=== PATIENT | male | born 1970 | race Caucasian/White ===

== ENCOUNTER → 2017-10-10 02:51 | Outpatient (CLI) | payer OTHER, SELFPAY ==
[2017-10-10 07:55] LABS: Abs Immature Grans 0.02 k/cumm (0.0-0.09); Absolute Basophil Count 0.03 k/cumm (0.0-0.2); Absolute Eosinophil Count 0.18 k/cumm (0.0-0.7); Absolute Lymphocyte Count 2.67 k/cumm (1.2-3.4); Absolute Neutrophil Count 3.62 k/cumm (1.2-6.7); Basophils % 0.4; Eosinophils % 2.5; HCT 37.3 % (40.0-50.0); HGB 12.2 g/dL (13.5-17.5); Immature Grans % 0.3; Mean Corp. HGB Concentration 32.7 g/dL (32.0-36.0); Mean Corpuscular Hemoglobin 29.5 pg (27.0-33.0); Mean Corpuscular Volume 90.3 fL (80-95); Mean Platelet Volume 9.3 fL (8.0-11.0); Monocytes % 9.7; Neutrophils % 50.1; Platelet Count 422 x1000/uL (130-400); RBC 4.13 m/cumm (4.50-6.00); RBC Distribution Width 14.3 % (11.8-14.1); White Blood Cell Count 7.22 k/cumm (4.4-10.8)
[2017-10-10 08:49] LABS: ALT 33 U/L (12-78); AST 18 U/L (15-37); Albumin 4.1 g/dL (3.4-5.0); Alkaline Phosphatase 44 U/L (46-116); Anion Gap 8.4 mmol/L (3-11); BUN 13 mg/dL (7-18); Bilirubin, Total 0.4 mg/dL (0.2-1.0); CO2 27.6 mmol/L (21.0-32.0); CREATININE 0.76 mg/dL (0.70-1.30); Calcium 9.2 mg/dL (8.5-10.1); Chloride 103 mmol/L (98-107); Cholesterol 243 mg/dL (50-200); Glucose 82 mg/dL (70-100); HDL Cholesterol 78 mg/dL (40-60); LDL CHOLESTEROL 142 mg/dL (<100); Potassium 4.4 mmol/L (3.5-5.1); Sodium 139 mmol/L (136-145); Total Protein 7.5 g/dL (6.4-8.2); Triglyceride 86 mg/dL (30-150)
== END ==
PROVIDERS: PCP Family Medicine; Visit Provider Physician Assistant
DX: Z79.899 Other long term (current) drug therapy (principal)
CPT/HCPCS: 36415; 80053; 80061; 83721; 85025

== ENCOUNTER 2019-01-31 09:02 | Outpatient (CLI) | payer OTHER, SELFPAY ==
[2019-01-31 11:28] LABS: Calculated LDL 135 mg/dL; Cholesterol 213 mg/dL (<200); HDL Cholesterol 66 mg/dL (40-60); Triglyceride 61 mg/dL (<150)
== END 2019-01-31 09:22 ==
PROVIDERS: PCP Family Medicine; Visit Provider Family Medicine
DX: E78.2 Mixed hyperlipidemia (principal)
CPT/HCPCS: 36415; 80061

== ENCOUNTER 2023-04-04 12:25 | Outpatient (CLI) | payer OTHER, SELFPAY ==
[2023-04-04 11:26] LABS: HGB 14.5 g/dL (13.5-17.5); MCV 88 fL (80-95); MPV 9.4 fL (8.0-11.0); Platelet Count 343 10^3/uL (130-400); RDW 12.7 % (11.8-14.1); RDW-SD 41.2 fL; WBC 9.07 10^3/uL (4.4-10.8)
[2023-04-04 11:43] LABS: Hemoglobin A1C 5.5 % (<5.7)
[2023-04-04 12:21] LABS: ALT 43 U/L (16-63); AST 16 U/L (15-37); Albumin 4.1 g/dL (3.4-5.0); Alkaline Phosphatase 68 U/L (46-116); Anion Gap 10.3 mmol/L (3-11); BUN 11 mg/dL (7-18); Bilirubin, Total 0.5 mg/dL (0.2-1.0); CO2 27.7 mmol/L (21.0-32.0); CREATININE 0.7 mg/dL (0.70-1.30); Calcium 9.5 mg/dL (8.5-10.1); Calculated LDL 136 mg/dL (<100); Chloride 103 mmol/L (98-107); Cholesterol 222 mg/dL (<200); Estimated GFR 111.56 (mL/min/1.73m2); Ferritin 432 ng/mL (26-388); Glucose 104 mg/dL (74-106); HDL Cholesterol 69 mg/dL (40-60); Potassium 4.3 mmol/L (3.5-5.1); Sodium 141 mmol/L (136-145); Total Protein 8.1 g/dL (6.4-8.2); Triglyceride 89 mg/dL (<150)
== END 2023-04-04 12:26 | disposition home or self-care (01) ==
LOC: LBO 12:26
PROVIDERS: Surgery; PCP Family Medicine; Visit Provider Student in an Organized Health Care Education/Training Program
DX: I10 Essential (primary) hypertension (principal); B99.9 Unspecified infectious disease; R53.83 Other fatigue; N52.9 Male erectile dysfunction, unspecified; L63.9 Alopecia areata, unspecified; K46.9 Unspecified abdominal hernia without obstruction or gangrene; G47.20 Circadian rhythm sleep disorder, unspecified type
CPT/HCPCS: 36415; 80053; 80061; 85027; 82728; 83036

== ENCOUNTER 2023-05-03 04:14 | Emergency (ER) | payer OTHER, SELFPAY ==
--- NOTE | 2023-05-03 04:15 | DI.RAD_ITS ---
Exam(s) XR PORTABLE CHEST AP EXAM: XR PORTABLE CHEST AP CLINICAL HISTORY: chest pain. TECHNIQUE: 2D digital imaging was performed. COMPARISON: No exams were available for comparison FINDINGS: Single AP portable view. Heart size is upper normal. The mediastinum is not widened. Mild increased interstitial markings noted in both lung beach but no confluent infiltrates nor pleur al effusions. No pulmonary edema. There are no Pipo B lines. IMPRESSION: As above but no confluent infiltrates. DATA REPOSITORY: RADIATION DOSE DELIVERED:
--- NOTE | 2023-05-03 04:15 | RT.EKG_ITS ---
APPROVED REPORT Exam: Resting ECG Reason for Exam: chest pain Patient Location: E HR:91 bpm ECG Measurements Heart Rate 91 AXIS MD 156 P 44 QRSd 98 QRS -7 QT 355 T -20 QTc 437 Conclusion Sinus rhythm...normal P axis, V-rate 60- 99 Borderline repol abnormality, diffuse leads...ST dep, T flat/neg, ant/lat/inf Borderline ST elevation, anterior leads...ST >0.15mV in V1-V4 STEMI: V1-V2 ekevation with reciprocal changes in inferior leads
[2023-05-03 04:19] VITALS: BP 185/127; PULSE 93; RESP 18; TEMP 36.8; O2SAT 100
[2023-05-03 04:21] VITALS: BP 185/127; PULSE 92; RESP 21; O2SAT 100
[2023-05-03 04:30] VITALS: BP 175/108; PULSE 93; RESP 22; O2SAT 100
[2023-05-03] MEDS: nitroGLYcerin in D5W 50 MG/250 ML BTL IV (04:30)
--- NOTE | 2023-05-03 04:30 | RT.EKG_ITS ---
APPROVED REPORT Exam: Resting ECG Reason for Exam: chest pain Patient Location: E HR:88 bpm ECG Measurements Heart Rate 88 AXIS MT 150 P 35 QRSd 103 QRS 0 QT 363 T 15 QTc 440 Conclusion Sinus rhythm...normal P axis, V-rate 60- [address] elevation, normalization of repolarization in the inferior leads, pt pain free
[2023-05-03] MEDS: Aspirin 81 MG CHEW 324 MG CH (04:32)
[2023-05-03] MEDS: Clopidogrel 300 MG TAB (04:33)
[2023-05-03] MEDS: MORPHine 10 MG/ML VIAL 4 MG IVP (04:35)
[2023-05-03 04:37] LABS: Abs Immature Grans 0.05 10^3/uL (0.0-0.06); Absolute Basophil Count 0.07 10^3/uL (0.0-0.2); Absolute Eosinophil Count 0.38 10^3/uL (0.0-0.7); Absolute Lymphocyte Count 4.64 10^3/uL (1.2-3.4); Absolute Monocyte Count 1.14 10^3/uL (0.1-0.8); Basophils % 0.6; Eosinophils % 3.5; HCT 42.4 % (40.0-50.0); Immature Grans % 0.5; MCH 29.4 pg (27.0-33.0); MCV 89 fL (80-95); MPV 9.7 fL (8.0-11.0); Monocytes % 10.6; Neutrophils % 41.8; Platelet Count 370 10^3/uL (130-400); RBC 4.76 10^6/uL (4.36-5.78); RDW 12.7 % (11.8-14.1); WBC 10.78 10^3/uL (4.4-10.8)
[2023-05-03] MEDS: Ondansetron 4 MG/2 ML VIAL (04:45)
[2023-05-03 04:51] LABS: PTT Activated 23.4 sec (23.6-32.8); Prothrombin Time 9.9 sec (9.1-11.1)
[2023-05-03] MEDS: Heparin in 0.45% NaCl 25,000 UNIT/250 ML BAG 10 UNIT IV (04:56)
[2023-05-03 05:00] VITALS: BP 140/91; PULSE 93; RESP 17; O2SAT 100
[2023-05-03 05:00] LABS: ALT 39 U/L (16-63); AST 22 U/L (15-37); Albumin 3.8 g/dL (3.4-5.0); Alkaline Phosphatase 62 U/L (46-116); Anion Gap 13.5 mmol/L (3-11); BUN 12 mg/dL (7-18); Bilirubin, Total 0.4 mg/dL (0.2-1.0); CO2 22.5 mmol/L (21.0-32.0); CREATININE 0.9 mg/dL (0.70-1.30); Calcium 8.9 mg/dL (8.5-10.1); Chloride 103 mmol/L (98-107); Glucose 144 mg/dL (74-106); Magnesium 2.1 mg/dL (1.8-2.4); Potassium 3.4 mmol/L (3.5-5.1); Sodium 139 mmol/L (136-145); Total Protein 7.7 g/dL (6.4-8.2)
[2023-05-03 05:01] LABS: Troponin I < 50 ng/L (< or =60)
--- NOTE | 2023-05-03 05:02 | ED.GENADUL_ITS ---
Discharge Plan Disposition Patient Disposition: Transfer-Acute Inpatient Care Specific Acute Inpt Facility[facility] Condition: Serious Discharge Details Chief Complaint: Chest Pain Clinical Impression: Acute non-ST segment elevation myocardial infarction Primary Care Provider: Juan Euceda ED Provider: Jasmeet Smith Home Meds and New Rx's Prescriptions: No Action lisinopril 20 mg tablet 20 mg PO DAILY 90 Days Qty: 90 3RF Discharge Data Discharge Physician: Jasmeet Smith HPI General Date/Time Provider Initiated Documentation: 05/03/23 04:25 . HPI Narrative: The patient is a 52-year-old male, with a past medical history significant for hypertension, who presents to the emergency department this evening after developing sudden crushing substernal chest discomfort with diaphoresis and nausea while walking into work this morning at around 4 AM. The patient was having difficulty with weakness and the ongoing chest pain and ultimately drove himself to the emergency room. He denies any recent illnesses or any prodromal symptoms prior to the onset of his substernal chest pain. 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 Related Data Home Medications Medication Instructions Recorded Confirmed lisinopril 20 mg tablet 20 mg PO DAILY 90 days #90 tab-caps 03/21/23 05/03/23 Previous Rx's Medication Instructions Recorded lisinopril 20 mg tablet 20 mg PO DAILY 90 days #90 tab-caps 03/21/23 Allergies Allergy/AdvReac Type Severity Reaction Status Date / Time cat dander Allergy Severe head Verified 05/03/23 04:37 congestion, SOB, Watery Eyes. ibuprofen Allergy Intermediate Hives Verified 05/03/23 04:37 Dust Allergy Intermediate head Uncoded 05/03/23 04:37 congestion General Stated Complaint: Chest Pain MORGAN: 2 Exam Const Other: Ashen, mclaughlin, profoundly diaphoretic and ill-appearing Resp Other: Auscultated breath sounds are clear bilaterally with good air exchange. Cardio Other: The cardiac rhythm is regular and tachycardic without any murmurs, rubs, or gallops. GI Other: The abdomen is soft and nontender with auscultated bowel sounds. Skin Other: The patient is profoundly diaphoretic and ashen on arrival to the emergency room Neuro Other: There are no focal motor or sensory deficits. The visualized components of the cranial nerves are grossly intact Psych Other: The patient is anxious with normal behavior and normal thought content Course Vital Signs Vital signs: Vital Signs Temperature 36.8 C 05/03/23 04:19 Pulse 93 H 05/03/23 04:19 Respiratory Rate 18 05/03/23 04:19 Blood Pressure 185/127 H 05/03/23 04:19 Pulse Oximetry 100 05/03/23 04:19 Temperature 36.8 C 05/03/23 04:19 Temperature Source Temporal Artery Scan 05/03/23 04:19 Pulse 93 H 05/03/23 04:19 Respiratory Rate 18 05/03/23 04:19 Respiratory Effort Short of Breath 05/03/23 04:23 Blood Pressure 185/127 H 05/03/23 04:19 Blood Pressure Position Supine 05/03/23 04:19 Pulse Oximetry 100 05/03/23 04:19 Oxygen Delivery Method Room Air 05/03/23 04:19 Oxygen Flow Rate 0 05/03/23 04:19 Pain Level 8 05/03/23 04:19 Lab/Test Results Lab/Test Results: Laboratory Tests Range/Units 05/03/23 04:20 WBC (4.4-10.8) 10^3/uL 10.78 RBC (4.36-5.78) 10^6/uL 4.76 Hgb (13.5-17.5) g/dL 14.0 Hct (40.0-50.0) % 42.4 MCV (80-95) fL 89 MCH (27.0-33.0) pg 29.4 MCHC (32.0-36.0) % 33.0 RDW (11.8-14.1) % 12.7 Plt Count (130-400) 10^3/uL 370 MPV (8.0-11.0) fL 9.7 Immature Gran % 0.5 Neutrophils % 41.8 Lymphocytes % 43.0 Monocytes % 10.6 Eosinophils % 3.5 Basophils % 0.6 Nucleated RBC % (0.0-0.3) % 0.0 Absolute Neutrophils (1.2-6.7) 10^3/uL 4.50 Absolute Lymphocytes (1.2-3.4) 10^3/uL 4.64 H Absolute Monocytes (0.1-0.8) 10^3/uL 1.14 H Absolute Eosinophils (0.0-0.7) 10^3/uL 0.38 Absolute Basophils (0.0-0.2) 10^3/uL 0.07 PT (9.1-11.1) sec 9.9 INR (0.9-1.1) 1.0 APTT (23.6-32.8) sec 23.4 L Sodium (136-145) mmol/L 139 Potassium (3.5-5.1) mmol/L 3.4 L Chloride (98-107) mmol/L 103 Carbon Dioxide (21.0-32.0) mmol/L 22.5 Anion Gap (3-11) mmol/L 13.5 H BUN (7-18) mg/dL 12 Creatinine (0.70-1.30) mg/dL 0.9 Est GFR (CKD-EPI 2020) (mL/min/1.73m2) 103.40 Glucose (74-106) mg/dL 144 H Calcium (8.5-10.1) mg/dL 8.9 Magnesium (1.8-2.4) mg/dL 2.1 Total Bilirubin (0.2-1.0) mg/dL 0.4 AST (15-37) U/L 22 ALT (16-63) U/L 39 Alkaline Phosphatase (46-116) U/L 62 Troponin I (< or =60) ng/L < 50 Total Protein (6.4-8.2) g/dL 7.7 Albumin (3.4-5.0) g/dL 3.8 Medical Decision Making Medical Records Medical records narrative: The patient was seen and examined. His EKG was very concerning for a STEMI with ST elevation in the anterior precordial leads with reciprocal changes in the inferior leads. I discussed the case with the cardiology service at [facility] who reviewed the EKGs and agreed that this represented a STEMI. They recommended that in addition to the IV nitro drip that event started, that the patient should receive an IV heparin bolus and drip and receive thrombolytics prior to transfer to [facility] as a STEMI to the [employer]. The patient was also given 324 mg of chewable aspirin and 300 mg of clopidogrel orally. The accepting physician at [facility] is Dr. Agustín Hernandez. The patient has improved significantly here in the emergency room in terms of his pain and coloration. He reports that his pain is gone from a 10 out of 10 to 2 out of 10. Repeat EKG reveals significant improvement in the ST segment elevation and the hyperacuity of the T waves throughout the precordium. The reciprocal changes in the inferior leads have almost completely resolved. The patient's was notified by phone, and she is in route to the emergency department at this time. Quality:SDOH Health Related Social Needs: No Data to Display PFSH All Active Problems (Updated 05/03/23 @ 05:09 by Jasmeet Smith MD) Acute non-ST segment elevation myocardial infarction (Acute) Hyperlipidemia (Acute) Hernia (Chronic) POSSIBLE Dx Erectile dysfunction (Acute) Circadian rhythm disorder (Acute) Hypertension (Chronic) Alopecia areata (Chronic 07/03/17) [facility]- Dermatology Family History Mother No problems noted. Father , cancer No problems noted. 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 [employer] Pets and animals: Yes Pets and animals: dog(s) Sexually active: Yes Do you think of yourself as: straight/heterosexual Current gender identity: male What is your relationship status?: How often do you talk on the phone with friends or family?: three or more times per week How often do you get together with friends or relatives?: decline to answer Do you belong to any clubs or organized social groups?: no Panel score (0-1 are the most socially isolated patients): 2 What type of physical activity do you participate in: none and other Details: physically active daily Seatbelt use: sometimes Helmet use: No Drive intox or ride w/intox 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
[2023-05-03] MEDS: Tenecteplase 50 MG KIT 45 MG IVP (05:03)
[2023-05-03 05:30] VITALS: BP 171/105; PULSE 95; RESP 19; O2SAT 100
[2023-05-03 06:00] VITALS: BP 138/89; PULSE 91; RESP 20; O2SAT 100
--- NOTE | 2023-05-03 06:19 | NUR.NOTE ---
VS from [facility] monitor not crossing over to [employer]. Some VS were manually entered. Print out of VS sent to medical records. Attempted to call report to laborer [employer] X 4 with no answer. Called [facility] and gave report to Lisbet LOPEZ.
--- NOTE | 2023-05-03 06:55 | DI.VRAD_ITS ---
PROCEDURE INFORMATION: Exam: XR Chest Exam date and time: 05/03/2023 4:43 AM Age: 52 years old Clinical indication: Pain; Chest pressure; Additional info: Chest pain TECHNIQUE: Imaging protocol: Radiologic exam of the chest. Views: 1 view. COMPARISON: US AAA SCREENING 04/09/2023 7:57 AM FINDINGS: Lungs: There is diffuse increase in interstitial markings. Pleural spaces: Unremarkable. No pleural effusion. No pneumothorax. Heart/Mediastinum: Unremarkable. No cardiomegaly. Bones/joints: Unremarkable. IMPRESSION: Nonspecific diffuse increase in interstitial markings. No focal consolidation. Dictated and Authenticated by: Santiago Borges MD. Ordering:YULIYA Alamo MD
== END 2023-05-03 07:02 | disposition short-term general hospital (02) ==
PROVIDERS: Emergency Provider Emergency Medicine Emergency Medical Services; PCP Family Medicine
DX: I10 Essential (primary) hypertension; I21.4 Non-ST elevation (NSTEMI) myocardial infarction; Z79.899 Other long term (current) drug therapy; Z88.8 Allergy status to other drugs, medicaments and biological substances; Z91.09 Other allergy status, other than to drugs and biological substances; E78.5 Hyperlipidemia, unspecified
CPT/HCPCS: 80053; 93005; 96365; 96366; 96374; 96375; 96376; 99291; 71045; 83735; 84484; 85025; 85610; 85730; 93010; J1644; J2270; J2305; J2405; J3101

== ENCOUNTER 2023-05-09 11:16 | Outpatient (CLI) | payer OTHER, SELFPAY ==
--- NOTE | 2023-05-09 11:15 | RT.EKG_ITS ---
APPROVED REPORT Exam: Resting ECG Reason for Exam: mi Patient Location: O HR:91 bpm ECG Measurements Heart Rate 91 AXIS WA 143 P 34 QRSd 95 QRS -4 QT 334 T 52 QTc 411 Conclusion Sinus rhythm...normal P axis, V-rate 50- 99 Left ventricular hypertrophy...multiple voltage criteria Nonspecific T abnormalities, anterior leads...T <-0.10mV, V2-V4 Baseline wander in lead(s) V1,V2,V3,V5
== END 2023-05-09 11:17 | disposition home or self-care (01) ==
LOC: DI.CARD 11:17
PROVIDERS: PCP Family Medicine; Visit Provider Internal Medicine Cardiovascular Disease
DX: I21.4 Non-ST elevation (NSTEMI) myocardial infarction (principal)
CPT/HCPCS: 93010

== ENCOUNTER 2023-05-13 11:39 | Outpatient (RCR) | payer OTHER, SELFPAY | END 2023-05-19 23:59 | disposition home or self-care (01) | LOC: CR 11:39 | PROVIDERS: PCP Family Medicine; Visit Provider Internal Medicine Cardiovascular Disease | DX: I21.4 Non-ST elevation (NSTEMI) myocardial infarction (principal); Z95.5 Presence of coronary angioplasty implant and graft | CPT/HCPCS: S9472 ==

== ENCOUNTER 2023-06-12 13:31 | Outpatient (RCR) | payer OTHER, SELFPAY | END 2023-06-18 23:59 | disposition home or self-care (01) | LOC: CR 13:31 | PROVIDERS: PCP Family Medicine; Visit Provider Internal Medicine Cardiovascular Disease | DX: I21.4 Non-ST elevation (NSTEMI) myocardial infarction (principal); Z95.5 Presence of coronary angioplasty implant and graft; Z51.89 Encounter for other specified aftercare | CPT/HCPCS: S9472 ==

== ENCOUNTER 2024-05-09 16:52 | Emergency (ER) | payer OTHER, SELFPAY ==
[2024-05-09 17:06] VITALS: BP 109/71; PULSE 94; RESP 16; TEMP 36.9; O2SAT 98
--- NOTE | 2024-05-09 18:15 | W.ED.GENAD ---
Discharge Plan Disposition Patient Disposition: Home Condition: Stable Discharge Details Clinical Impression: Superficial thrombophlebitis of left leg Primary Care Provider: Juan Euceda ED Provider: Joe Figueroa Home Meds and New Rx's Prescriptions: Discontinued aspirin 81 mg tablet,chewable 81 mg PO DAILY clopidogrel 75 mg tablet 75 mg PO DAILY Qty: 90 3RF No Action nitroglycerin 0.4 mg tablet, sublingual 0.4 mg sublingual Q5M PRN (Reason: chest pain) Rx Instructions: do not exceed 3 doses per episode lisinopril 20 mg tablet 20 mg PO DAILY 90 Days Qty: 90 3RF metoprolol succinate 50 mg tablet extended release 24 hr 50 mg PO DAILY Qty: 90 3RF atorvastatin 80 mg tablet 80 mg PO DAILY Qty: 90 3RF Discharge Instructions Instructions: Deep vein thrombosis (blood clot in the leg), Enoxaparin, Superficial vein phlebitis and thrombosis, How to Give a Blood Thinner Shot Additional Instructions: You were seen in the emergency department for your obvious large varicosities of your left lower extremity with extensive nodular swelling is consistent with superficial thrombophlebitis, we did not have ultrasound until Saturday and you are returning to the ER for a formal ultrasound of the left lower extremity on Saturday. He had an elevated D-dimer test so we are covering you to prevent any deep vein thrombosis over the weekend with a shot of Lovenox, 1 was given to you this evening, the next shot needs to be given around 7:30 PM tomorrow with return on Saturday for formal ultrasound by calling the number provided on your outpatient ultrasound order sheet and then presenting to the ER immediately after study for results. Be wary of any potential causes for trauma as V of the high risk of bleeding including any strikes to the head, significantly apply direct pressure and elevation to any even minor cut while on this medication. Please return for any emergent concerns. Referrals: Juan Euceda DO [Primary Care Provider] - Discharge Data Discharge Date/Time-TO BE ENTERED AT DEPARTURE: 05/09/24 19:55 HPI General Date/Time Provider Initiated Documentation: 05/09/24 17:17. HPI Narrative: 53 year-old male presents to ED today by POV/ambulating with his with a chief complaint of L leg pain, severe varicosities, with onset noticed last night around midnight. Quality described as L leg extremely painful, mildly swollen, some redness/warmth/skin changes in the upper lateral calf, no radiation to lesions, rider erythema, calf pain, medial thigh pain, groin pain. Severity is described as severe. Palliating factors include nothing specific attempted. Provoking factors include nothing specific. Events leading up to the incident/Associated Symptoms: Patient denies history of blood clots. Patient not anticoagulated- is on DAPT. Related Data Home Medications ?Medication ?Instructions ?Recorded ?Confirmed nitroglycerin 0.4 mg sublingual 0.4 mg sublingual Q5M PRN chest 05/08/23 05/09/24 tablet pain lisinopril 20 mg tablet 20 mg PO DAILY 90 days #90 tab-caps 04/13/24 05/09/24 metoprolol succinate 50 mg 50 mg PO DAILY #90 tabs 04/14/24 05/09/24 tablet,extended release 24 hr atorvastatin 80 mg tablet 80 mg PO DAILY #90 tabs 04/27/24 05/09/24 Previous Rx's ?Medication ?Instructions ?Recorded lisinopril 20 mg tablet 20 mg PO DAILY 90 days #90 tab-caps 04/13/24 metoprolol succinate 50 mg 50 mg PO DAILY #90 tabs 04/14/24 tablet,extended release 24 hr atorvastatin 80 mg tablet 80 mg PO DAILY #90 tabs 04/27/24 Allergies Allergy/AdvReac Type Severity Reaction Status Date / Time cat dander Allergy Severe head Verified 05/09/24 17:11 congestion, SOB, Watery Eyes. ibuprofen Allergy Intermediate Hives Verified 05/09/24 17:11 Dust Allergy Intermediate head Uncoded 05/09/24 17:11 congestion General Stated Complaint: Vascular MORGAN: 3 Review of Systems All systems reviewed & are unremarkable except as noted in HPI and below Exam Narrative Exam Narrative: GENERAL APPEARANCE: Well-nourished, non-toxic, awake and alert, atraumatic, no acute distress. SKIN: Warm, pink, dry, intact, without rashes/lesions/ulcerations. HEAD: Normocephalic, atraumatic, normal hair distribution for gender/age. EYES: Normal conjunctiva, no exudates on lids/lashes. ENT: Nares patent, no circumoral cyanosis, no facial swelling NECK: Supple, trachea midline, painless cervical ROM. LUNGS/CHEST: Non-labored respirations, normal A/P diameter, symmetrical expansion, no chest wall deformity HEART (CV/PV): No peripheral edema, no JVD, L dorsalis pedis pulse 2+, regular ABDOMEN: Soft, non-distended, no guarding. MSK: Normal ROM, no swelling/deformity to bilateral UEs or LEs, moving all extremities without weakness, no cyanosis, spine midline without tenderness, normal curvature, significant left lower extremity varicosity in the peroneal vein distribution with focal small nodular swelling throughout this large varicosity that goes from his mid thigh to upper lateral calf, he is neurovascularly intact distally without calf tenderness, Homans negative, no medial thigh tenderness, there is some warmth and erythema in the lateral proximal calf, right lower extremity within normal limits NEURO: Mental Status AAOx4 - alert to person, place, time, events No facial droop, no forehead involvement. Motor: No focal weakness - strength 5/5 in bilateral UEs and LEs, proximal and distal, symmetric. Sensory: sensation intact to light touch globally. Gait normal: patient ambulated without ataxia into ED room. PSYCH: euthymic, cooperative, pleasant, appropriate speech Course Vital Signs Vital signs: Vital Signs Temperature 36.9 C 05/09/24 17:06 Pulse 94 H 05/09/24 17:06 Respiratory Rate 16 05/09/24 17:06 Blood Pressure 109/71 05/09/24 17:06 Pulse Oximetry 98 05/09/24 17:06 Temperature 36.9 C 05/09/24 17:06 Pulse 94 H 05/09/24 17:06 Respiratory Rate 16 05/09/24 17:06 Blood Pressure 109/71 05/09/24 17:06 Pulse Oximetry 98 05/09/24 17:06 Oxygen Delivery Method Room Air 05/09/24 17:06 Oxygen Flow Rate 0 05/09/24 17:06 Medical Decision Making This dictation utilizes [id number] dictation software and may contain unedited grammatical errors. 53 year-old male presents to ED today by POV/ambulating with his with a chief complaint of L leg pain, severe varicosities, with onset noticed last night around midnight. Quality described as L leg extremely painful, mildly swollen, some redness/warmth/skin changes in the upper lateral calf, no radiation to lesions, rider erythema, calf pain, medial thigh pain, groin pain. Severity is described as severe. Palliating factors include nothing specific attempted. Provoking factors include nothing specific. Events leading up to the incident/Associated Symptoms: Patient denies history of blood clots. Patient not anticoagulated- is on DAPT. Patients' medical history: Coronary artery disease, hypertension, hyperlipidemia. Family and social history: Noncontributory, lives independently with his . Pertinent exam findings / vital signs include significant left lower extremity varicosity in the peroneal vein distribution with focal small nodular swelling throughout this large varicosity that goes from his mid thigh to upper lateral calf, he is neurovascularly intact distally without calf tenderness, Homans negative, no medial thigh tenderness, there is some warmth and erythema in the lateral proximal calf, right lower extremity within normal limits. Differential / pathologies of concern include superficial thrombophlebitis, DVT, less likely cellulitis. Diagnostic studies of: -[id number]. -basic labs prior to admin of lovenox, no acute abnormalities, mildly anemic, consistent with priors. Interventions of: -Given 1 dose of Lovenox, counseled his on administration of another dose of Lovenox tomorrow evening and then return to ED Saturday morning for ultrasound with immediate presentation to emergency department for results after outpatient formal ultrasound. ED Course/Assessment/Plan: 53-year-old male presents today with varicosities and some skin changes to his lower extremity concerning for DVT versus extensive superficial thrombophlebitis, his D-dimer was positive, I counseled him that we need to discontinue his Plavix and aspirin given Lovenox for the weekend so he can return on Saturday for formal ultrasound. Patient's is comfortable administering Lovenox at home and nurse did instruct her on how to give subcutaneous injection, stress strict return criteria for any head strikes or trauma, any uncontrollable bleeding or neurologic alteration. Findings not consistent with overt DVT but his superficial thrombophlebitis is extensive enough I think anticoagulation is warranted, not consistent with cellulitis. Disposition of superficial thrombophlebitis of left leg. Patient verbalized understanding of the plan and return to ED criteria and engaged in shared decision making. Medical Records Medical records reviewed: Yes I reviewed the patient's medical records. Lab Data Lab results reviewed: Yes I reviewed the patient's lab results. Labs: Laboratory Tests Range/Units 05/09/24 05/09/24 18:13 19:43 WBC (4.4-10.8) 10^3/uL 11.98 H RBC (4.36-5.78) 10^6/uL 4.13 L Hgb (13.5-17.5) g/dL 12.2 L Hct (40.0-50.0) % 37.4 L MCV (80-95) fL 91 MCH (27.0-33.0) pg 29.5 MCHC (32.0-36.0) % 32.6 RDW (11.8-14.1) % 13.7 Plt Count (130-400) 10^3/uL 339 MPV (8.0-11.0) fL 10.0 PT (9.1-11.1) sec 9.5 INR (0.9-1.1) 0.9 APTT (20.6-30.2) sec 28.5 D-Dimer (<500) ng/mlFEU 525 H Sodium (136-145) mmol/L 141 Potassium (3.5-5.1) mmol/L 3.5 Chloride (98-107) mmol/L 103 Carbon Dioxide (21.0-32.0) mmol/L 27.7 Anion Gap (3-11) mmol/L 10.3 BUN (7-18) mg/dL 12 Creatinine (0.70-1.30) mg/dL 0.6 L Est GFR (CKD-EPI 2020) (mL/min/1.73m2) 116.15 Glucose (74-106) mg/dL 88 Calcium (8.5-10.1) mg/dL 9.1 Quality:SDOH Health Related Social Needs: No Data to Display PFSH All Active Problems (Updated 05/09/24 @ 19:42 by PATRICIA Choi) Superficial thrombophlebitis of left leg (Acute) Coronary artery disease (Chronic) Hyperlipidemia (Acute) Hernia (Chronic) POSSIBLE Dx Erectile dysfunction (Acute) Circadian rhythm disorder (Acute) Hypertension (Chronic) Alopecia areata (Chronic 07/03/17) [facility]- [facility] Family History Mother No problems noted. Father , cancer No problems noted. 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 [employer] Pets and animals: Yes Pets and animals: dog(s) Sexually active: Yes Do you think of yourself as: straight/heterosexual Current gender identity: male What is your relationship status?: How often do you talk on the phone with friends or family?: three or more times per week How often do you get together with friends or relatives?: decline to answer Do you belong to any clubs or organized social groups?: no Panel score (0-1 are the most socially isolated patients): 2 What type of physical activity do you participate in: none and other Details: physically active daily Seatbelt use: sometimes Helmet use: No Drive intox or ride w/intox seasonal delivery 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
[2024-05-09 18:47] LABS: D-Dimer 525 ng/mlFEU (<500)
[2024-05-09 18:58] VITALS: RESP 16
[2024-05-09 19:23] LABS: HCT 37.4 % (40.0-50.0); HGB 12.2 g/dL (13.5-17.5); MCH 29.5 pg (27.0-33.0); MCHC 32.6 % (32.0-36.0); MCV 91 fL (80-95); Platelet Count 339 10^3/uL (130-400); RBC 4.13 10^6/uL (4.36-5.78); RDW 13.7 % (11.8-14.1); RDW-SD 45.8 fL; WBC 11.98 10^3/uL (4.4-10.8)
[2024-05-09] MEDS: Enoxaparin 120 MG/0.8 ML SYR SC ×2 (19:25→19:42)
[2024-05-09 19:30] LABS: Anion Gap 10.3 mmol/L (3-11); BUN 12 mg/dL (7-18); CO2 27.7 mmol/L (21.0-32.0); CREATININE 0.6 mg/dL (0.70-1.30); Calcium 9.1 mg/dL (8.5-10.1); Chloride 103 mmol/L (98-107); Estimated GFR 116.15 (mL/min/1.73m2); Glucose 88 mg/dL (74-106); Potassium 3.5 mmol/L (3.5-5.1); Sodium 141 mmol/L (136-145)
[2024-05-09] MEDS: Acetaminophen 500 MG TAB 1000 MG PO (19:41)
[2024-05-09 20:02] LABS: INR 0.9 (0.9-1.1); PTT Activated 28.5 sec (20.6-30.2); Prothrombin Time 9.5 sec (9.1-11.1)
== END 2024-05-09 19:55 | disposition home or self-care (01) ==
PROVIDERS: Emergency Provider Physician Assistant; PCP Family Medicine
DX: I83.892 Varicose veins of left lower extremity with other complications (principal); R79.1 Abnormal coagulation profile; I25.10 Atherosclerotic heart disease of native coronary artery without angina pectoris; I10 Essential (primary) hypertension; E78.5 Hyperlipidemia, unspecified; Z87.891 Personal history of nicotine dependence; Z79.02 Long term (current) use of antithrombotics/antiplatelets
CPT/HCPCS: 80048; 85027; 96372; 99284; 85379; 85610; 85730; 99283; J1650

== ENCOUNTER 2024-05-11 13:24 | Emergency (ER) | payer OTHER, SELFPAY ==
[2024-05-11 13:32] VITALS: BP 151/88; PULSE 88; RESP 20; TEMP 36.5; O2SAT 98
[2024-05-11 13:41] VITALS: RESP 18
--- NOTE | 2024-05-11 13:51 | ED.GENADUL_ITS ---
Discharge Plan Disposition Patient Disposition: Home Condition: Stable Discharge Details Clinical Impression: Superficial thrombophlebitis of left leg Primary Care Provider: Juan Euceda ED Provider: Angela Johnson Home Meds and New Rx's Prescriptions: New enoxaparin [Lovenox] 40 mg/0.4 mL syringe 40 mg subcut DAILY 45 Days Qty: 18 0RF No Action nitroglycerin 0.4 mg tablet, sublingual 0.4 mg sublingual Q5M PRN (Reason: chest pain) Rx Instructions: do not exceed 3 doses per episode lisinopril 20 mg tablet 20 mg PO DAILY 90 Days Qty: 90 3RF metoprolol succinate 50 mg tablet extended release 24 hr 50 mg PO DAILY Qty: 90 3RF atorvastatin 80 mg tablet 80 mg PO DAILY Qty: 90 3RF clopidogrel 75 mg tablet 75 mg PO DAILY Patient Comments: TAKE 1 TABLET BY MOUTH DAILY Discharge Instructions Instructions: How to give an anticoagulant shot Additional Instructions: You were seen in the emergency department today to discuss the results of the ultrasound that you had done on your left lower extremity. This did not show any deep vein thromboses, but you do have some small blood clots in the superficial veins, which are likely the cause of your symptoms. Based on your risk factors and the presence of clot it is reasonable to start you on a prophylactic anticoagulant medication. We will give yourself the shot daily, please hold your home Plavix and aspirin until you meet with your loan counselor at your scheduled appointment on . When you are on anticoagulant medications, it is important that you use caution as any injury to your head could be severe. If you are involved in a traumatic event you need to return to the emergency department for reevaluation, even for things like simple falls. You need to follow-up with your primary care provider to discuss this visit, and ensure that you are blood clot has improved/resolved and that it is safe for you to stop the anticoagulation after the recommended 45 days. You can also return to the emergency department if you have any concerns. Thank you for allowing us to be part of your care. HPI General Mode of arrival: ambulatory . Date/Time Provider Initiated Documentation: 05/11/24 13:27 . Limitations to Documentation: no limitations . Information obtained by: patient and old records reviewed . HPI Narrative: HPI: This is a 53-year-old male patient presenting for evaluation after having an outpatient duplex ultrasound performed, looking for results. In brief, the patient was seen in this emergency department 2 days ago with left calf pain and torturous varicose veins, concerning for superficial thrombophlebitis. The patient was started on anticoagulation with Lovenox, and was sent for ultrasound today to rule out DVT given a positive D-dimer. The patient reports that he has been taking his medication without difficulty, has not noted any significant changes in his pain or symptoms. He states that he does not typically utilize pain medications and has not used any ibuprofen or Tylenol. He is otherwise in his normal state of health without acute complaint or concern today. Exam: Gen: Awake and alert, in no apparent distress HEENT: Non-icteric sclera Neck: Supple Lungs: No apparent respiratory distress, normal respiratory effort. CV: Appears well perfused Abdomen: Non-distended MSK: Moves 4 extremities without apparent limitation in ROM, patient has torturous lateral varicose veins of the left lower extremity and calf with some nodularity appreciated at the lateral aspect of the knee and calf. The patient states tenderness to palpation but has no evidence of overlying skin changes such as cellulitis. Full range of motion of the leg, full sensation, appears well-perfused. Skin: Visualized skin without rashes, cyanosis. Neuro: Normal Gait, no obvious focal deficits or facial asymmetry. Speaks in full, clear sentences. Psych: Appropriate for situation. MDM: This is a 53-year-old male patient who is here for imaging results after a duplex ultrasound was performed to evaluate for DVT. Differential also includes superficial thrombophlebitis, no evidence for infection such as cellulitis or infectious thrombophlebitis. No significant swelling, neurodeficit, or evidence of perfusion abnormality to suggest arterial occlusion, phlegmasia. ED Course: I reviewed the radiology report, which shows no evidence of DVT but does show nonocclusive thrombus in the greater saphenous vein. Given the patient's history of coronary artery disease, hyperlipidemia, and hypertension with does put him at slightly increased risk for VTE, recommendations per my review recommends prophylactic anticoagulation in this patient with greater saphenous vein involvement, to include Lovenox 30 mg daily. I provided prescription for a 45-day course of this medication. I counseled the patient to hold his dual antiplatelet therapy until his appointment with his loan counselor on Thursday at which time he should discuss this visit and any ongoing recommendations for anticoagulant management. He also has a scheduled appointment with his primary care provider who should be made aware of this change in medications. I counseled the patient on anticoagulant precautions, and at this time, the patient has had a full medical evaluation and is safe for discharge to home. They are hemodynamically stable, ambulatory, and tolerating PO. They are understanding of the follow-up plan and return precautions. They left our facility without incident. Angela Johnson MD Related Data Home Medications ?Medication ?Instructions ?Recorded ?Confirmed nitroglycerin 0.4 mg sublingual 0.4 mg sublingual Q5M PRN chest 05/08/23 05/11/24 tablet pain lisinopril 20 mg tablet 20 mg PO DAILY 90 days #90 tab-caps 04/13/24 05/11/24 metoprolol succinate 50 mg 50 mg PO DAILY #90 tabs 04/14/24 05/11/24 tablet,extended release 24 hr atorvastatin 80 mg tablet 80 mg PO DAILY #90 tabs 04/27/24 05/11/24 clopidogrel 75 mg tablet 75 mg PO DAILY 05/11/24 05/11/24 enoxaparin 40 mg/0.4 mL 40 mg (0.4 mL) subcut DAILY 45 05/11/24 subcutaneous syringe (Lovenox) days #18 mL Previous Rx's ?Medication ?Instructions ?Recorded lisinopril 20 mg tablet 20 mg PO DAILY 90 days #90 tab-caps 04/13/24 metoprolol succinate 50 mg 50 mg PO DAILY #90 tabs 04/14/24 tablet,extended release 24 hr atorvastatin 80 mg tablet 80 mg PO DAILY #90 tabs 04/27/24 enoxaparin 40 mg/0.4 mL 40 mg (0.4 mL) subcut DAILY 45 05/11/24 subcutaneous syringe (Lovenox) days #18 mL Allergies Allergy/AdvReac Type Severity Reaction Status Date / Time cat dander Allergy Severe head Verified 05/11/24 13:35 congestion, SOB, Watery Eyes. ibuprofen Allergy Intermediate Hives Verified 05/11/24 13:35 Dust Allergy Intermediate head Uncoded 05/11/24 13:35 congestion General Stated Complaint: Vascular MORGAN: 4 Course Vital Signs Vital signs: Vital Signs Temperature 36.5 C 05/11/24 13:32 Pulse 88 05/11/24 13:32 Respiratory Rate 20 05/11/24 13:32 Blood Pressure 151/88 H 05/11/24 13:32 Pulse Oximetry 98 05/11/24 13:32 Temperature 36.5 C 05/11/24 13:32 Pulse 88 05/11/24 13:32 Respiratory Rate 18 05/11/24 13:41 Respiratory Depth Normal 05/11/24 13:41 Respiratory Pattern Normal 05/11/24 13:41 Blood Pressure 151/88 H 05/11/24 13:32 Blood Pressure Position Sitting 05/11/24 13:32 Pulse Oximetry 98 05/11/24 13:32 Oxygen Delivery Method Room Air 05/11/24 13:32 Oxygen Flow Rate 0 05/11/24 13:32 Medical Decision Making Quality:SDOH Health Related Social Needs: No Data to Display PFSH All Active Problems (Updated 05/11/24 @ 13:51 by Angela Johnson MD) Superficial thrombophlebitis of left leg (Acute) Coronary artery disease (Chronic) Hyperlipidemia (Acute) Hernia (Chronic) POSSIBLE Dx Erectile dysfunction (Acute) Circadian rhythm disorder (Acute) Hypertension (Chronic) Alopecia areata (Chronic 07/03/17) [facility] Family History Mother No problems noted. Father , cancer No problems noted. 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 [employer] Pets and animals: Yes Pets and animals: dog(s) Sexually active: Yes Do you think of yourself as: straight/heterosexual Current gender identity: male What is your relationship status?: How often do you talk on the phone with friends or family?: three or more times per week How often do you get together with friends or relatives?: decline to answer Do you belong to any clubs or organized social groups?: no Panel score (0-1 are the most socially isolated patients): 2 What type of physical activity do you participate in: none and other Details: physically active daily Seatbelt use: sometimes Helmet use: No Drive intox or ride w/intox funeral limousine 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
[2024-05-11 14:34] VITALS: BP 118/85; PULSE 80; RESP 18; O2SAT 98
== END 2024-05-11 14:39 | disposition home or self-care (01) ==
PROVIDERS: Emergency Provider Emergency Medicine; PCP Family Medicine
DX: I82.4Z2 Acute embolism and thrombosis of unspecified deep veins of left distal lower extremity (principal); I10 Essential (primary) hypertension; E78.5 Hyperlipidemia, unspecified; I25.10 Atherosclerotic heart disease of native coronary artery without angina pectoris; Z87.891 Personal history of nicotine dependence
CPT/HCPCS: 99283

== ENCOUNTER 2024-09-01 09:59 | Observation (INO) | payer OTHER, SELFPAY ==
[2024-09-01] VITALS (53 sets, daily range): BP systolic 102–181; BP diastolic 52–102; PULSE 63–108; RESP 12–29; TEMP 36–37.3; O2SAT 93–100; BMI 28.2
--- NOTE | 2024-09-01 10:15 | DI.CT_ITS ---
Exam(s) CT ABDOMEN PELVIS W EXAM: CT ABDOMEN PELVIS W CLINICAL HISTORY: Concern for incarcerated umbilical hernia TECHNIQUE: Imaging Protocol: Axial computed tomography images with coronal and sagittal reformatted images were created and reviewed. CONTRAST MATERIAL: Intravenous: Omnipaque 350 Contrast volume:75 mL Oral: No COMPARISON: No exams were available for comparison FINDINGS: The examination is limited due to patient motion artifact. ABDOMEN: Lung Bases: No acute abnormality. Liver: Normal density. No measurable mass. Portal, Superior Mesenteric, and Splenic Veins: Unremarkable. Gallbladder and Biliary Tract: No radiodense calculus or dilation. Pancreas: Normal density, no abnormal calcifications or inflammatory process. Spleen: There is a tiny hypodensity in the inferior aspect of the spleen which may represent a cyst or small hemangioma. Adrenals: No masses seen. Kidneys: Normal size, contour and axis. No radiodense stones or obstructive uropathy. No masses seen. Abdominal Aorta: Abdominal portion non-dilated. Atherosclerotic calcification is present. Bowel: There is diverticulosis of the colon without evidence of acute diverticulitis. There is a Umbilical hernia containing a loop of small bowel. The loop of small bowel within the hernia is distended measuring 3 cm in diameter. There are distended loops of small bowel present. The findings are suspicious for small bowel obstruction. There is normal caliber terminal ileum. The colon is of normal caliber. Appendix is unremarkable. There is no evidence of pneumatosis. Peritoneal Cavity: No ascites, collection or mesenteric inflammatory response. No free air. Lymph Nodes: Within normal limits. Bones: Within normal limits for the patient's age. Soft Tissues: There are bilateral fat containing inguinal hernias. PELVIS: Bladder: Symmetric distention, no gross wall thickening. Reproductive Organs: Unremarkable as visualized. Lymph Nodes: Within normal limits. Bones: Within normal limits for the patient's age. IMPRESSION: 1. Paraumbilical hernia containing a loop of distended small bowel. There are distended loops of small bowel in the abdomen most consistent with a small-bowel obstruction secondary to the hernia. 2. No evidence of pneumoperitoneum or pneumatosis. RADIATION DOSE DELIVERED: 476.26mGy.cm Total DLP DATA REPOSITORY: All CT scans at this facility are submitted to the National Radiology Data Registry (NRDR) Dose Index Registry (DIR) with the [employer] (ACR). RADIATION OPTIMIZATION: All CT scans at this facility use at least one of these dose optimization techniques: automated exposure control; mA and/or kV adjustment per patient size (includes targeted exams where dose is matched to clinical indication); or iterative reconstruction.
--- NOTE | 2024-09-01 10:15 | RT.EKG_ITS ---
APPROVED REPORT Exam: Resting ECG Reason for Exam: pale, diaphoretic Patient Location: E HR:84 bpm ECG Measurements Heart Rate 84 AXIS AR 145 P 46 QRSd 97 QRS 0 QT 370 T 23 QTc 436 Conclusion Sinus rhythm, rate 84 No interval abnormalities No STEMI No significant changes from priors
[2024-09-01] MEDS: Ondansetron 4 MG/2 ML VIAL IVP (10:28)
[2024-09-01] MEDS: HYDROmorphone 2 MG/ML SYR 0.5 MG IVP (10:28)
--- NOTE | 2024-09-01 10:32 | W.ED.GENAD ---
Discharge Plan Disposition Patient Disposition: Admit to [facility] Condition: Fair Discharge Details Clinical Impression: Incarcerated umbilical hernia Attending Provider: Zeeshan Marroquin Primary Care Provider: Juan Euceda ED Provider: Angela Johnson General Mode of arrival: ambulatory. Date/Time Provider Initiated Documentation: 09/01/24 10:01. Limitations to Documentation: no limitations. Information obtained by: patient and old records reviewed. HPI Narrative: This is a 54-year-old male patient with a past medical history significant for coronary artery disease, [place] 1 year ago, and a history of an umbilical hernia that has been present for some time, presenting for evaluation of worsening pain in the area of his umbilical hernia. About 30 minutes ago the patient reports that he was lifting a heavy box, felt a sudden severe tearing pain and has had persistent pain in his umbilical region since then. He states that he felt like he needed to vomit, states that he has tried to go to the bathroom since but has not been able to pass stool. Prior to this event he was in his normal state of health. He has not taken any medications prior to arrival in our facility for management of pain or nausea. Related Data Home Medications ?Medication ?Instructions ?Recorded ?Confirmed lisinopril 20 mg tablet 20 mg PO DAILY 90 days #90 tab-caps 04/13/24 09/01/24 metoprolol succinate 50 mg 50 mg PO DAILY #90 tabs 04/14/24 09/01/24 tablet,extended release 24 hr atorvastatin 80 mg tablet 80 mg PO DAILY #90 tabs 04/27/24 09/01/24 aspirin 81 mg tablet,delayed 81 mg PO DAILY 05/14/24 09/01/24 release (Adult Aspirin Regimen) nitroglycerin 0.4 mg sublingual 0.4 mg sublingual Q5M PRN chest 06/09/24 09/01/24 tablet pain #20 tabs Previous Rx's ?Medication ?Instructions ?Recorded lisinopril 20 mg tablet 20 mg PO DAILY 90 days #90 tab-caps 04/13/24 metoprolol succinate 50 mg 50 mg PO DAILY #90 tabs 04/14/24 tablet,extended release 24 hr atorvastatin 80 mg tablet 80 mg PO DAILY #90 tabs 04/27/24 nitroglycerin 0.4 mg sublingual 0.4 mg sublingual Q5M PRN chest 06/09/24 tablet pain #20 tabs Allergies Allergy/AdvReac Type Severity Reaction Status Date / Time cat dander Allergy Severe head Verified 09/01/24 10:09 congestion, SOB, Watery Eyes. ibuprofen Allergy Intermediate Hives Verified 09/01/24 10:09 Dust Allergy Intermediate head Uncoded 09/01/24 10:09 congestion General Stated Complaint: Abd Prob MORGAN: 2 Exam Narrative Exam Narrative: Gen: Awake and alert, appears acutely uncomfortable HEENT: Non-icteric sclera Neck: Supple Lungs: No apparent respiratory distress, normal respiratory effort. CV: Appears well perfused, heart with tachycardic rate but regular rhythm, strong distal pulses Abdomen: Non-distended, soft, the patient has a palpable umbilical hernia that is unable to be reduced, with some dusky discoloration of the skin immediately overlying. Tenderness to palpation in this region. MSK: Moves 4 extremities without apparent limitation in ROM Skin: Visualized skin without rashes, cyanosis. Skin is pale, clammy Neuro: Normal Gait, no obvious focal deficits or facial asymmetry. Speaks in full, clear sentences. Psych: Appropriate for situation. Course Vital Signs Vital signs: Vital Signs Temperature 37.3 C 09/01/24 10:07 Pulse 108 H 09/01/24 10:07 Respiratory Rate 20 09/01/24 10:07 Blood Pressure 140/73 09/01/24 10:07 Pulse Oximetry 98 09/01/24 10:07 Temperature 37.3 C 09/01/24 10:07 Temperature Source Oral 09/01/24 10:07 Pulse 108 H 09/01/24 10:07 Respiratory Rate 20 09/01/24 10:07 Blood Pressure 140/73 09/01/24 10:07 Blood Pressure Position Sitting 09/01/24 10:07 Pulse Oximetry 98 09/01/24 10:07 Oxygen Delivery Method Room Air 09/01/24 10:07 Oxygen Flow Rate 0 09/01/24 10:07 Pain Level 10 09/01/24 10:28 Medical Decision Making This is a 54-year-old male patient presenting for evaluation of abdominal pain in the area of an umbilical hernia after lifting. My differential includes but is not limited to strangulated or incarcerated hernia, bowel ischemia, certainly considered other intra-abdominal pathologies including bowel obstruction, appendicitis, diverticulitis, mesenteric ischemia, pancreatitis, gastritis, cholecystitis. The brief duration of symptoms is reassuring, though I considered metabolic and electrolyte derangements, dehydration and kidney injury. Considered systemic infection including bacteremia and sepsis, though the patient is reassuringly without fever at this time. Given the concerning exam I we will send this patient immediately to CT abdomen pelvis with contrast to evaluate the cause of his pain. We will obtain laboratory studies to include CBC, CMP, magnesium, troponin, lactate, lipase, and urinalysis. I will provide the patient with Zofran and Dilaudid for initial management of pain and nausea. - I reviewed the patient's laboratory studies, which show no leukocytosis, severe anemia or thrombocytopenia. Chemistry panel shows no significant electrolyte derangements, evidence of kidney dysfunction or liver pathology. I do note a slightly elevated lactate to 2.4, INR 1.0. CT imaging does show a loop of bowel in the known umbilical hernia, with evidence of dilation/small bowel obstruction upstream. This is concerning for incarcerated hernia. I did consult general surgery, who attempted reduction at bedside and were unsuccessful. The patient will be taken to the operating suite for surgical intervention. While under my care the patient remained hemodynamically appropriate, did receive a second dose of Dilaudid for ongoing pain management needs. He was transferred to the OR under the care of the surgery service without incident Angela Johnson MD [facility] All Active Problems (Updated 09/01/24 @ 14:07 by Angela Johnson MD) Incarcerated umbilical hernia (Acute) Incarcerated umbilical hernia (Acute) Varicose veins of left calf (Acute) Phlebitis (Acute) Superficial thrombophlebitis of left leg (Acute) Coronary artery disease (Chronic) Hyperlipidemia (Acute) Hernia (Chronic) POSSIBLE Dx Erectile dysfunction (Acute) Circadian rhythm disorder (Acute) Hypertension (Chronic) Alopecia areata (Chronic 07/03/17) [facility] Family History Mother No problems noted. Father , cancer No problems noted. Social History Smoking/Tobacco Use Status: Former Tobacco Use Smokeless tobacco user: chewing tobacco (Occasional use; has quit) Smoking risk assessment performed?: Yes Alcohol Intake: current Alcohol Intake frequency: 0-2 drinks per day Alcohol type: beer Drug use: Never Substance use type: does not use Adopted: No Caregiver/Support person: No Household members: spouse Housing: house Number of Children: 2 Communication Needs: None Education Level: high school current occupation: part time at [employer] Pets and animals: Yes Pets and animals: dog(s) Sexually active: Yes Do you think of yourself as: straight/heterosexual Current gender identity: male What is your relationship status?: How often do you talk on the phone with friends or family?: three or more times per week How often do you get together with friends or relatives?: decline to answer Do you belong to any clubs or organized social groups?: no Panel score (0-1 are the most socially isolated patients): 2 What type of physical activity do you participate in: none and other Details: physically active daily Seatbelt use: sometimes Helmet use: No Drive intox or ride w/intox tram 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
[2024-09-01 10:34] LABS: Abs Immature Grans 0.04 10^3/uL (0.0-0.06); HCT 39.1 % (40.0-50.0); HGB 13.1 g/dL (13.5-17.5); Immature Grans % 0.4 %; MCH 28.9 pg (27.0-33.0); MCHC 33.5 % (32.0-36.0); MCV 86 fL (80-95); MPV 9.9 fL (8.0-11.0); Platelet Count 308 10^3/uL (130-400); RBC 4.53 10^6/uL (4.36-5.78); RDW 13.4 % (11.8-14.1); RDW-SD 42.1 fL; WBC 9.03 10^3/uL (4.4-10.8)
[2024-09-01] MEDS: Omnipaque 350 MG/ML 100 ML BTL 75 ML IJ (10:40)
[2024-09-01] MEDS: Normal Saline - Diluent 50 ML VIAL IJ (10:41)
[2024-09-01 10:49] LABS: INR 1.0 (0.9-1.1); Prothrombin Time 9.9 sec (9.1-11.1)
[2024-09-01] MEDS: Lactated Ringers 1,000 ML 1000 ML IV (11:00)
[2024-09-01 11:08] LABS: ALT 40 U/L (16-63); AST 24 U/L (15-37); Albumin 4.1 g/dL (3.4-5.0); Alkaline Phosphatase 62 U/L (46-116); Anion Gap 13.2 mmol/L (3-11); BUN 14 mg/dL (7-18); Bilirubin, Total 0.8 mg/dL (0.2-1.0); CO2 21.8 mmol/L (21.0-32.0); Calcium 8.9 mg/dL (8.5-10.1); Chloride 102 mmol/L (98-107); Estimated GFR 115.43 (mL/min/1.73m2); Glucose 139 mg/dL (74-106); Lipase 31 U/L (<78); Magnesium 2.0 mg/dL (1.8-2.4); Potassium 3.5 mmol/L (3.5-5.1); Sodium 137 mmol/L (136-145); Total Protein 7.5 g/dL (6.4-8.2); Troponin I 4 ng/L (<or=76)
[2024-09-01] MEDS: HYDROmorphone 2 MG/ML SYR 1 MG IVP (11:12)
[2024-09-01] MEDS: ACETAMINOPHEN 1,000 MG/100 ML BAG 400 MG IVPB (11:12)
--- NOTE | 2024-09-01 11:49 | ANES.PREOP_ITS ---
General Info Date of Service Date Performed: 09/01/24 Height: 5 ft 6 in Weight: 79.379 kg Body Mass Index (BMI): 28.2 Surgical Procedure: Operation Date: 09/01/24 12:10 Proposed Procedure Side Surgeon p Hernia Umbilical Laparoscopic Zeeshan B Marroquin, DO Meds Allergies and Home Medications Allergies Allergy/AdvReac Type Severity Reaction Status Date / Time cat dander Allergy Severe head Verified 09/01/24 10:09 congestion, SOB, Watery Eyes. ibuprofen Allergy Intermediate Hives Verified 09/01/24 10:09 Dust Allergy Intermediate head Uncoded 09/01/24 10:09 congestion Home Medication ?Medication ?Instructions ?Recorded lisinopril 20 mg tablet 20 mg PO DAILY 90 days #90 t ab-caps 04/13/24 metoprolol succinate 50 mg 50 mg PO DAILY #90 tabs tablet,extended release 24 hr atorvastatin 80 mg tablet 80 mg PO DAILY #90 tabs 04/18 aspirin 81 mg tablet,delayed 81 mg PO DAILY 05/14/24 release (Adult Aspirin Regimen) nitroglycerin 0.4 mg sublingual 0.4 mg sublingual Q5M PRN chest 06/09/24 tablet pain #20 tabs Current Visit Medications: Current Medications Generic Name Dose Route Start Last Admin Trade Name Freq PRN Reason Stop Dose Admin IV Miscellaneous Supplies 1 each 09/01/24 10:30 Iv Access-Emergency Dept IV DIRECTED EPIFANIO Iohexol 75 ml 09/01/24 10:45 09/01/24 10:40 Omnipaque 350 Mg/Ml 100 Ml Btl IJ 10/01/24 23:59 75 ml DIRECTED EPIFANIO Administration Sodium Chloride 0 ml 09/01/24 10:17 Normal Saline Flush 10 Ml Syr IVP PRN PRN Sodium Chloride 0 ml 09/01/24 20:00 Normal Saline Flush 10 Ml Syr IVP BID EPIFANIO Sodium Chloride 0 ml 09/01/24 10:17 Normal Saline 10 Ml Vial IJ DIRECTED PRN Sodium Chloride 50 ml 09/01/24 10:45 09/01/24 10:41 Normal Saline - Diluent 50 Ml Vial IJ 50 ml .FOR DI USE EPIFANIO Administration PFSH Active Problems Active Problems: Problem Status Onset Code Varicose veins of left calf Acute I83.92 Phlebitis Acute I80.9 Superficial thrombophlebitis of left leg Acute I80.02 Coronary artery disease Chronic I25.10 Hyperlipidemia Acute E78.5 Hernia Chronic K46.9 Erectile dysfunction Acute N52.9 Circadian rhythm disorder Acute G47.20 Hypertension Chronic I10 Alopecia areata Chronic 07/03/17 L63.9 Tobacco Smoking/Tobacco Use Status: Former Tobacco Use Smokeless tobacco user: chewing tobacco (Occasional use; has quit) Passive smoking exposure: No Alcohol Alcohol Intake: current Alcohol intake frequency: 0-2 drinks per day Alcohol type: beer Substance Use Substance use: Never Substance use type: does not use Vital Signs and Lab Results Vital Signs Most Recent Vital Signs in EMR: Most Recent Vital Signs Temp Pulse Resp BP Pulse Ox 37.3 C 108 H 20 102/52 L 98 09/01/24 10:07 09/01/24 10:07 09/01/24 10:07 09/01/24 11:28 09/01/24 10:07 Lab Results 09/01/24 10:20 09/01/24 10:20 Complete Blood Count: 2 WBC, (4.4-10.8) 9.03 10^3/uL Today, 10:20 RBC, (4.36-5.78) 4.53 10^6/uL Today, 10:20 Hgb, (13.5-17.5) 13.1 g/dL L Today, 10:20 Hct, (40.0-50.0) 39.1 % L Today, 10:20 Plt Count, (130-400) 308 10^3/uL Today, 10:20 VBG Lactate, (<or=2.0) 2.4 mmol/L H* Today, 10:20 Complete Metabolic Panel: 2 Sodium, (136-145) 137 mmol/L Today, 10:20 Potassium, (3.5-5.1) 3.5 mmol/L Today, 10:20 Chloride, (98-107) 102 mmol/L Today, 10:20 Carbon Dioxide, (21.0-32.0) 21.8 mmol/L Today, 10:20 BUN, (7-18) 14 mg/dL Today, 10:20 Creatinine, (0.70-1.30) 0.6 mg/dL L Today, 10:20 Est GFR (CKD-EPI 2020), (mL/min/1.73m2) 115.43 Today, 10:20 Magnesium, (1.8-2.4) 2.0 mg/dL Today, 10:20 Calcium, (8.5-10.1) 8.9 mg/dL Today, 10:20 Albumin, (3.4-5.0) 4.1 g/dL Today, 10:20 Glucose, (74-106) 139 mg/dL H Today, 10:20 Liver Function Panel: 2 ALT, (16-63) 40 U/L Today, 10:20 AST, (15-37) 24 U/L Today, 10:20 Coagulation Panel: 2 INR, (0.9-1.1) 1.0 Today, 10:20 PT, (9.1-11.1) 9.9 sec Today, 10:20 Cardiac Panel: 2 Troponin I, (<or=76) 4 ng/L Today Pancreas Panel: 2 Lipase, (<78) 31 U/L Today, 10:20 Imaging and Studies Imaging and Studies Study information below may be from another EMR and interpreted by another provider. Please see original notes in EMR for more complete details. EKG Summary: EKG PATIENT NAME: Maxim Martinez UNIT #: [id number] ORDERING PROVIDER: Angela Johnson M.D. PRIMARY CARE PROVIDER: KASSIDY GARNETT DO DATE/TIME OF SERVICE: 09/01/24 1049 : 1970 PERFORMING LOCATION: ER APPROVED REPORT Exam: Resting ECG Reason for Exam: pale, diaphoretic Patient Location: E HR:84 bpm ECG Measurements Heart Rate 84 AXIS AK 145 P 46 QRSd 97 QRS 0 QT 370 T23 QTc 436 Conclusion Sinus rhythm, rate 84 No interval abnormalities No STEMI No significant changes from priors - <Electronically signed by Angela Johnson M.D. in [place]> E-Sign Date: 09/01/24 E-Sign Time: 1101 ADDENDUM APPROVED REPORT Exam: Resting ECG Reason for Exam: pale, diaphoretic Patient Location: E HR:84 bpm ECG Measurements Heart Rate 84 AXIS AK 145 P 46 QRSd 97 QRS 0 QT 370 T23 QTc 436 Conclusion Sinus rhythm, rate 84 No interval abnormalities No STEMI No significant changes from priors I have reviewed and I agree with the emergency room physician's ECG interpretation. Electronically signed by: <Electronically signed by Antionette Alford M.D. in [place]> 09/01/24 1137 Cosigned by: Anesthesia Assessment and Plan Anesthesia History Personal History: No History of Anesthesia Complications Family History: No Family History of Anesthesia Complications Exercise Tolerance Exercise Tolerance: Metabolic Equivalents>4 Pertinent Negatives Pertinent Negatives: No Symptoms of GERD, No Major Pulmonary Symptoms or Complaints and No History of CVA/TIA Cardiac & Pulmonary Exam Cardiac Exam: Normal S1/S2 Heart Sounds Pulmonary Exam: Clear Bilateral Breath Sounds Implantable Cardiac Device Does patient have a Pacemaker or an ICD?: No Airway Exam Known Difficult Airway: No Mallampati Class: 3 Mouth Opening: Narrow (< 3cm) Thyromental Distance: Less than 3 cm Neck Range of Motion: Full ROM Neck Circumference: Normal Teeth Condition: Generalized Poor Dentition and Loose or Chipped (diffused chipped teeth bilaterally in molars) ASA Classification ASA Score: ASA 3 Emergency Case?: Yes NPO Status NPO Status: Full Stomach Anesthesia Plan Resuscitation Status: Full Code Anesthesia Technique: General Anesthesia Airway Planned: Endotracheal Tube Monitors Used: Standard Monitors
--- NOTE | 2024-09-01 11:52 | W.PM.HP.N ---
Date of service: 09/01/24 Time of Service: 11:52 Assessment and Plan Assessment and plan (1) Incarcerated umbilical hernia: Status: Acute Assessment and plan: CT imaging and exam indicate incarcerated umbilical hernia containing bowel, not reducible with bedside measures. Concern for bowel compromise due to overlying skin changes and elevated lactic acid - OR emergently for laparoscopic assisted umbilical hernia repair, possible open, possible bowel resection - Preop antibiotics - Discussed risk, benefits, complications, alternatives with patient in person and via phone. All questions answered. Both voiced understanding (2) Coronary artery disease: Status: Chronic Assessment and plan: Stents over 1 year ago, currently off Plavix. Average bleeding risk (3) Hypertension: Status: Chronic Assessment and plan: - Medicine consult for blood pressure management History of Present Illness History of Present Illness Chief Complaint: Umbilical pain Narrative: 54-year-old male with history of coronary artery disease status post stents last year now off Plavix, and known umbilical hernia. Patient is usually able to manually reduce umbilical hernia, however earlier today after lifting heavy boxes the bulge at the umbilicus got larger and irreducible with increasing pain. Presented to the emergency department with for further evaluation. Nausea earlier, but no vomiting. Denies chest pain at rest or with exertion. No shortness of breath. No fevers, chills. Review of Systems Constitutional Constitutional: Denies chills, Denies fever(s) and Denies weakness Cardiovascular Cardiovascular: Denies chest pain, Denies chest pain at rest, Denies chest pain with activity, Denies palpitations, Denies dyspnea and Denies dyspnea on exertion Respiratory Respiratory: Denies cough, Denies dyspnea and Denies dyspnea on exertion Gastrointestinal Gastrointestinal: Reports abdominal pain, Reports nausea and Denies vomiting Musculoskeletal Musculoskeletal: Denies myalgias and Denies muscle weakness Neurologic Neurologic: Denies weakness Endocrine Endocrine: Denies palpitations Hematologic/Lymphatic Hematologic/Lymphatic: Denies easy bleeding and Denies easy bruising PFSH All Active Problems (Updated 09/01/24 @ 11:58 by Zeeshan Marroquin DO) Incarcerated umbilical hernia (Acute) Varicose veins of left calf (Acute) Phlebitis (Acute) Superficial thrombophlebitis of left leg (Acute) Coronary artery disease (Chronic) Hyperlipidemia (Acute) Hernia (Chronic) POSSIBLE Dx Erectile dysfunction (Acute) Circadian rhythm disorder (Acute) Hypertension (Chronic) Alopecia areata (Chronic 07/03/17) [facility] Family History Mother No problems noted. Father , cancer No problems noted. 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 [employer] Pets and animals: Yes Pets and animals: dog(s) Sexually active: Yes Do you think of yourself as: straight/heterosexual Current gender identity: male What is your relationship status?: How often do you talk on the phone with friends or family?: three or more times per week How often do you get together with friends or relatives?: decline to answer Do you belong to any clubs or organized social groups?: no Panel score (0-1 are the most socially isolated patients): 2 What type of physical activity do you participate in: none and other Details: physically active daily Seatbelt use: sometimes Helmet use: No Drive intox or ride w/intox full service vending 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 Meds Allergies and Home Medications Allergies Allergy/AdvReac Type Severity Reaction Status Date / Time cat dander Allergy Severe head Verified 09/01/24 10:09 congestion, SOB, Watery Eyes. ibuprofen Allergy Intermediate Hives Verified 09/01/24 10:09 Dust Allergy Intermediate head Uncoded 09/01/24 10:09 congestion Home Medications ?Medication ?Instructions ?Recorded ?Confirmed ?Type lisinopril 20 mg tablet 20 mg PO DAILY 90 days #90 tab-caps 04/13/24 09/01/24 Rx metoprolol succinate 50 mg 50 mg PO DAILY #90 tabs 04/14/24 09/01/24 Rx tablet,extended release 24 hr atorvastatin 80 mg tablet 80 mg PO DAILY #90 tabs 04/27/24 09/01/24 Rx aspirin 81 mg tablet,delayed 81 mg PO DAILY 05/14/24 09/01/24 History release (Adult Aspirin Regimen) nitroglycerin 0.4 mg sublingual 0.4 mg sublingual Q5M PRN chest 06/09/24 09/01/24 Rx tablet pain #20 tabs Exam Const General: cooperative, uncomfortable and no acute distress Eyes Sclera: sclerae normal Pupils: PERRL EOM: EOM intact bilaterally Resp Effort & Inspection: normal respiratory effort and no cough Cardio Rate: regular rate GI Inspection: distended and visible herniation Palpation: hernia umbilical (non reducible. tender. bluish discoloration) Skin General skin exam: turgor normal, no erythema and no pallor Neuro General: patient alert, patient awake and patient oriented x3 Cognition: normal cognition Speech: speech normal Results Imaging Abdomen CT scan report/results: report reviewed and image reviewed Labs 09/01/24 10:20 09/01/24 10:20 Labs: Laboratory Results - last 24 hr 09/01/24 10:20 WBC 9.03 RBC 4.53 Hgb 13.1 L Hct 39.1 L MCV 86 MCH 28.9 MCHC 33.5 RDW 13.4 Plt Count 308 MPV 9.9 Immature Gran % 0.4 Neutrophils % 54.4 Lymphocytes % 31.0 Monocytes % 10.3 Eosinophils % 3.2 Basophils % 0.7 Nucleated RBC % 0.0 Absolute Neutrophils 4.91 Absolute Lymphocytes 2.80 Absolute Monocytes 0.93 H Absolute Eosinophils 0.29 Absolute Basophils 0.06 PT 9.9 INR 1.0 VBG Lactate 2.4 H* Sodium 137 Potassium 3.5 Chloride 102 Carbon Dioxide 21.8 Anion Gap 13.2 H BUN 14 Creatinine 0.6 L Est GFR (CKD-EPI 2020) 115.43 Glucose 139 H Calcium 8.9 Magnesium 2.0 Total Bilirubin 0.8 AST 24 ALT 40 Alkaline Phosphatase 62 Troponin I 4 Total Protein 7.5 Albumin 4.1 Lipase 31 Last Vital Signs Temp 37.3 C 09/01/24 10:07 Pulse 108 H 09/01/24 10:07 Resp 20 09/01/24 10:07 BP 102/52 L 09/01/24 11:28 Pulse Ox 98 09/01/24 10:07 Time Spent Time spent with Patient: 55-74 minutes Time was spent: preparing to see the patient(eg.review tests), ordering medications,tests, procedures, referring, communicating with other health personal care assistant, indepentently interpreting results, counseling the patient and care coordination
[2024-09-01 12:04] LABS: Troponin I 4 ng/L (<or=76)
[2024-09-01] MEDS: Lactated Ringers 1,000 ML 30 ML IV (12:44)
[2024-09-01] MEDS: Bupivacaine 0.25% Pres-Free W/EPI 30 ML VIAL (14:19)
--- NOTE | 2024-09-01 14:32 | ROE_ITS ---
Operative Note Operative Note PRE-OP DIAGNOSIS: Incarcerated umbilical hernia POST-OP DIAGNOSIS: same (Incarcerated umbilical hernia) PROCEDURE: Laparoscopic umbilical hernia repair with mesh SURGEON: Zeeshan Marroquin CENTRAL SUPPLY TECHNICIAN SUPERVISOR: Tamara White Refer to Anesthesia Record ESTIMATED BLOOD LOSS: 11.37 Patient was transported to: PACU Patient's condition: stable Implants: Ventralight ST mesh 4.5 inches round Indications: 54-year-old male with known umbilical hernia which was previously manually reducible. Presented to ED on date of operation with increased bulge, pain which was nonreducible. CT scan showed incarcerated small bowel. Hernia contents nonreducible in the emergency department Findings: Small bowel incarcerated in 1.5 centimeter umbilical hernia. Reduced with combination of tension and pressure. Bowel erythematous but no necrosis noted. Improved perfusion during the course of the case Procedure Description: After consent was confirmed to be on the chart, patient was taken operating room where he was transferred onto the operating room table. Anesthesia was induced, once an adequate level was achieved patient was intubated endotracheally. Left arm was then tucked. Patient received 2 g Ancef prior to start of procedure. SCDs were on and functioning prior to start of anesthesia. Abdomen was then prepped with ChloraPrep and draped in a standard sterile fashion Procedure began by making an incision in the left upper quadrant subcostal. Veress needle was introduced into the abdomen but placement could not be confirmed. After second attempt was unsuccessful, new incision was made closer to the midline at Chavez's point with negative drop test. Insufflation was began showing high flows and low opening pressures. Left subcostal incision was then enlarged and a 5 mm trocar was introduced into the abdomen in Optiview fashion. Underlying viscera was inspected and there was no injury secondary to trocar or Veress needle placement. 2 additional trocars were then placed left anterior axillary line - 5 mm left lower quadrant near the ASIS and 5 mm trocar lateral to the umbilicus. The left subcostal trocar was upsized to a 12 mm. Inspection of the midline showed small bowel incarcerated in a small umbilical hernia. Atraumatic graspers were used to grab the bowel and placed tension, while pressure was placed on the hernia sac and contents externally. Small bowel was reduced without trauma to the bowel. Initial inspection showed some hyperemia to the incarcerated segment but no evidence of necrosis. Bowel was later reinspected and found to be mildly erythematous but well-perfused. Hernia sac and herniated fat were then placed on tension. LigaSure was used to incise the peritoneum and help to reduce the remaining hernia contents, as well as clear landing zone for mesh placement. Once fat was reduced from the hernia, the defect was closed laparoscopically using a 2-0 STRATAFIX suture. 4-1/[address] mesh with echo 2 positioning device was then hydrated, rolled, introduced into the abdomen. Skin incision in the umbilicus was used for Enrique Nick to grasp the string from the echo device and pull the mesh up to the abdominal wall. Mesh was then secured in place in double crown fashion with absorbable tacks. Echo device was then removed and all components were present. Fascia at the 12 mm trocar site was then closed with an 0 Vicryl on a Enrique Nick device. Remaining trocars were removed under direct visualization and abdomen was desufflated. Trocar skin incisions were closed with 3-0 Vicryl deep and 4-0 Monocryl subcuticular sutures prior to being covered with glue. Umbilical and Chavez's point stab incisions were covered with glue only. Pressure dressing was then placed within the umbilicus consisting of gauze and Tegaderm. Anesthesia performed tap blocks after the procedure. Patient appeared to tolerate the procedure well and no complications were appreciated. All sponge, needle, instrument counts were reported as correct at the end of the procedure. Patient was awoken in the OR and taken to PACU for recovery Zeeshan Marroquin DO, JONNY Date of Procedure: 09/01/24
[2024-09-01] MEDS: HYDROmorphone 2 MG/ML SYR IVP ×2 (15:04→15:15)
--- NOTE | 2024-09-01 15:08 | W.ANESPOSTOP ---
Postoperative Evaluation Date, Time and Location Date Performed: 09/01/24 Time Performed: 15:08 Patient Location: PACU Vital Signs Most Recent Imported Vital Signs: Most Recent Vital Signs Temp Pulse Resp BP Pulse Ox 36.3 C L 65 17 161/73 H 98 09/01/24 14:50 09/01/24 14:56 09/01/24 14:56 09/01/24 14:56 09/01/24 14:56 Pain Score Most Recent Pain Score: Most Recent Pain Score Pain Level 0 09/01/24 14:50 Assessment Mental Status: Awake (Alert & Oriented to Patient Baseline) Airway and Respiratory Function: Patent airway with normal (patient baseline) respiratory exam Cardiovascular Function: Hemodynamically Stable Hydration Status: Adequately Hydrated Nausea & Vomiting: No Nausea or Vomiting Pain: Pain is tolerable per patient Peripheral Nerve Block: Patient did not receive a nerve block
[2024-09-01] MEDS: Methocarbamol 500 MG TAB PO ×2 (16:25→21:11)
[2024-09-01] MEDS: Acetaminophen 325 MG TAB 650 MG PO ×2 (16:25→21:11)
--- NOTE | 2024-09-01 18:08 | W.PC.ACHO ---
Registration Status: ADM RINA Primary Language: Preferred Language: Welsh ED Information & Data Chief Complaint Abd Prob 09/01/24 10:34 Triage Note Pt has had umbilical hernia 09/01/24 10:07 for some time. Reports 30 minutes ago, it popped out further and is complaining of significant 8/10 pain. Unable to get comfortable. Most Recent Vital Signs Temperature 36.8 C 09/01/24 16:53 Temperature Source Temporal Artery Scan 09/01/24 16:53 Pulse 74 09/01/24 16:53 Pulse Rhythm Regular 09/01/24 15:34 Pulse 74 09/01/24 15:25 Respiratory Rate 16 09/01/24 16:53 Respiratory Effort Normal, Non-Labored 09/01/24 15:34 Respiratory Depth Normal 09/01/24 15:34 Respiratory Pattern Normal 09/01/24 15:34 Blood Pressure 134/89 09/01/24 16:53 Blood Pressure Mean 104 09/01/24 16:53 Blood Pressure Position Sitting 09/01/24 10:07 Pulse Oximetry 97 09/01/24 16:53 Respiratory End-tidal CO2 36 09/01/24 15:25 Oxygen Delivery Method Room Air 09/01/24 16:53 Oxygen Flow Rate 0 09/01/24 16:53 Pain Level 3 09/01/24 17:30 Comment PT ARRIVED IN PACU. 09/01/24 14:38 Allergies cat dander Allergy (Severe, Verified 09/01/24 10:09) head congestion, SOB, Watery Eyes. [facility] ibuprofen Allergy (Intermediate, Verified 09/01/24 10:09) Hives Dust Allergy (Intermediate, Uncoded 09/01/24 10:09) head congestion [facility] Active Medications Generic Name Dose Route Start Last Admin Trade Name Freq PRN Reason Stop Dose Admin Acetaminophen 650 mg 09/01/24 16:00 09/01/24 16:25 Acetaminophen 325 Mg Tab PO 10/01/24 15:59 650 mg QID EPIFANIO Administration Hydromorphone HCl 0 mg 09/01/24 14:15 09/01/24 15:15 Hydromorphone 2 Mg/Ml Syr IVP 10/01/24 14:14 0.5 mg DIRECTED PRN Administration Ringer's Solution 1,000 mls @ 30 mls/hr 09/01/24 12:45 09/01/24 15:25 IV 30 mls/hr INFUSION EPIFANIO Infusion Methocarbamol 500 mg 09/01/24 15:00 09/01/24 16:25 Methocarbamol 500 Mg Tab PO 10/01/24 14:59 500 mg Q6H EPIFANIO Administration Sodium Chloride 50 ml 09/01/24 10:45 09/01/24 10:41 Normal Saline - Diluent 50 Ml Vial IJ 50 ml .FOR DI USE EPIFANIO Administration IV IV Catheter Type [Left Peripheral IV Antecubital] IV Catheter Gauge [Left 20 Antecubital] Diet Orders Category Date Time Status Regular/Normal [DIET] Nutrition 09/01/24 Dinner Active Diagnostics 09/01/24 09/01/24 09/01/24 Range/Units 13:17 11:35 10:20 WBC 9.03 (4.4-10.8) 10^3/uL RBC 4.53 (4.36-5.78) 10^6/uL Hgb 13.1 L (13.5-17.5) g/dL Hct 39.1 L (40.0-50.0) % MCV 86 (80-95) fL MCH 28.9 (27.0-33.0) pg MCHC 33.5 (32.0-36.0) % RDW 13.4 (11.8-14.1) % Plt Count 308 (130-400) 10^3/uL MPV 9.9 (8.0-11.0) fL Immature Gran % 0.4 % Neutrophils % 54.4 % Lymphocytes % 31.0 % Monocytes % 10.3 % Eosinophils % 3.2 % Basophils % 0.7 % Nucleated RBC % 0.0 (0.0-0.3) % Absolute Neutrophils 4.91 (1.2-6.7) 10^3/uL Absolute Lymphocytes 2.80 (1.2-3.4) 10^3/uL Absolute Monocytes 0.93 H (0.1-0.8) 10^3/uL Absolute Eosinophils 0.29 (0.0-0.7) 10^3/uL Absolute Basophils 0.06 (0.0-0.2) 10^3/uL PT 9.9 (9.1-11.1) sec INR 1.0 (0.9-1.1) VBG Lactate 2.4 H* (<or=2.0) mmol/L Sodium 137 (136-145) mmol/L Potassium 3.5 (3.5-5.1) mmol/L Chloride 102 (98-107) mmol/L Carbon Dioxide 21.8 (21.0-32.0) mmol/L Anion Gap 13.2 H (3-11) mmol/L BUN 14 (7-18) mg/dL Creatinine 0.6 L (0.70-1.30) mg/dL Est GFR (CKD-EPI 2020) 115.43 (mL/min/1.73m2) Glucose 139 H (74-106) mg/dL Calcium 8.9 (8.5-10.1) mg/dL Magnesium 2.0 (1.8-2.4) mg/dL Total Bilirubin 0.8 (0.2-1.0) mg/dL AST 24 (15-37) U/L ALT 40 (16-63) U/L Alkaline Phosphatase 62 (46-116) U/L Troponin I Cancelled 4 4 (<or=76) ng/L Total Protein 7.5 (6.4-8.2) g/dL Albumin 4.1 (3.4-5.0) g/dL Lipase 31 (<78) U/L Intake and Output - 24 Hour Total 09/01/24 09:59 thru 09/01/24 17:35 Intake Total 1150 Output Total 611 Balance 539 Weight 79.379 kg Intake: IV 600 Oral 550 Output: Urine 600 Estimated Blood Loss 11 Other: Urine Color Yellow Urine Appearance Clear Urine Odor Normal Comment Ruiz was placed in OR and removed, no ruiz in place on admission to /s. Emesis Description None Urinary Catheter Urinary Catheter Date of 09/01/24 Insertion [Urethral (Ruiz)] Time of insertion [Urethral ( 12:59 Ruiz)] Falls Risk Assessment History of Falls No History 09/01/24 15:34 Contributing Factors No Factors 09/01/24 15:34 Ambulatory Aids Independent 09/01/24 15:34 Tubes/Lines None 09/01/24 15:34 Gait Evaluation No gait disturbance 09/01/24 15:34 Cognition No cognitive impairment 09/01/24 15:34 Fall Total Score 0 09/01/24 15:34 Level of Risk Standard/Low Risk 09/01/24 15:34 Problems (Last Reviewed 09/01/24 @ 11:54 by Zeeshan Marroquin, ) Incarcerated umbilical hernia (Acute) Coronary artery disease (Chronic) Hypertension (Chronic) v v v v v v v v v Sending and/or Receiving Nurses: Please use comment section below to note any information pertinent to the patient hand-off not included above. Information / Comments: Pt admitted post surgical hernia repair. Report received from: Olivia FUR GLAZER.
[2024-09-01] MEDS: Normal Saline Flush 10 ML SYR IVP (21:11)
[2024-09-02] MEDS: Methocarbamol 500 MG TAB PO ×2 (05:00→12:00)
[2024-09-02 07:09] LABS: Abs Immature Grans 0.05 10^3/uL (0.0-0.06); HCT 39.5 % (40.0-50.0); HGB 12.9 g/dL (13.5-17.5); Immature Grans % 0.5 %; MCH 28.9 pg (27.0-33.0); MCHC 32.7 % (32.0-36.0); MCV 88 fL (80-95); MPV 10.3 fL (8.0-11.0); Platelet Count 271 10^3/uL (130-400); RBC 4.47 10^6/uL (4.36-5.78); RDW 13.4 % (11.8-14.1); RDW-SD 43.9 fL; WBC 10.11 10^3/uL (4.4-10.8)
[2024-09-02 07:28] LABS: Anion Gap 7.5 mmol/L (3-11); BUN 3 mg/dL (7-18); CO2 29.5 mmol/L (21.0-32.0); Calcium 8.8 mg/dL (8.5-10.1); Chloride 103 mmol/L (98-107); Estimated GFR 121.96 (mL/min/1.73m2); Glucose 104 mg/dL (74-106); Potassium 3.7 mmol/L (3.5-5.1); Sodium 140 mmol/L (136-145)
[2024-09-02 07:44] VITALS: BP 156/104; PULSE 95; TEMP 36.4; O2SAT 97
[2024-09-02] MEDS: Acetaminophen 325 MG TAB 650 MG PO ×2 (08:20→12:00)
--- NOTE | 2024-09-02 08:49 | PDOC.CMIN ---
Care Management Initial Assmt Initial Assessment Reason for Hospitalization: Incarcerated Hernia Functional Status/Living Situation Town of Residence: [place] Employment Status: Employed ([employer]) Instrumental Activities of Daily Living (ADLs): Independent Advance Directives Advance Directives: Do you have an Advance Directive: N 08/20/15, 08:54 AD On File at [facility]: N 08/20/15, 08:54 Date Asked 09/01/24 09/01/24, 10:27 AD Date Reviewed COLST On File at [facility] COLST Date Scanned Code Status Resuscitation Status Full Code Care Team Visit Care Team Role Provider Type Antionette Holliday MD MD [facility] STAFF PHYSICIAN Juan Euceda, DO Primary Care Provider OSTEOPATHIC DOCTOR Angela Johnson MD Emergency Provider [facility] STAFF PHYSICIAN Zeeshan Marroquin, DO Admit Provider OSTEOPATHIC DOCTOR Attending Provider Other Providers Social Determinants of Health Screening Social Determinants of health last assessed in clinic: 09/01/24 Will the Patient Participate in the Screening?: Yes Do you worry about having a steady place to live?: no Problems where you live: no known problems In the past 12 months, have you had to go without electric, gas, oil or water in your home?: no Has lack of transportation kept you from medical appointments or from doing things needed for daily living?: no Has anyone in your life made you feel unsafe or unsupported?: no How hard is it for you to pay for the very basics like food, housing, medical care, and heating? Would you say it is:: Not hard at all Do you want help finding or keeping work or a job?: I do not need or want help If for any reason you need help with day-to-day activities such as bathing, preparing meals, shopping, managing finances, etc., do you get the help you need?: I get all the help I need How often do you feel lonely or isolated from those around you?: Never Do you speak a language other than Persian at home?: No Does the patient want assistance with any of the above?: No PFSH All Active Problems (Updated 09/01/24 @ 14:07 by Angela Johnson MD) Incarcerated umbilical hernia (Acute) Incarcerated umbilical hernia (Acute) Varicose veins of left calf (Acute) Phlebitis (Acute) Superficial thrombophlebitis of left leg (Acute) Coronary artery disease (Chronic) Hyperlipidemia (Acute) Hernia (Chronic) POSSIBLE Dx Erectile dysfunction (Acute) Circadian rhythm disorder (Acute) Hypertension (Chronic) Alopecia areata (Chronic 07/03/17) [facility]- [facility] Family History Mother No problems noted. Father , cancer No problems noted. 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 [employer] Pets and animals: Yes Pets and animals: dog(s) Sexually active: Yes Do you think of yourself as: straight/heterosexual Current gender identity: male What is your relationship status?: How often do you talk on the phone with friends or family?: three or more times per week How often do you get together with friends or relatives?: decline to answer Do you belong to any clubs or organized social groups?: no Panel score (0-1 are the most socially isolated patients): 2 What type of physical activity do you participate in: none and other Details: physically active daily Seatbelt use: sometimes Helmet use: No Drive intox or ride w/intox residential recycle 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
--- NOTE | 2024-09-02 10:59 | W.PM.DS.N ---
Date of service: 09/02/24 Time of Service: 10:59 DS: Diagnosis Discharge Diagnosis (1) Incarcerated umbilical hernia: Status: Acute Asessment and Plan: resolved, post op instructions provided (2) Coronary artery disease: Status: Chronic Asessment and Plan: resume home meds (3) Hypertension: Status: Chronic Asessment and Plan: resume home meds Discharge Plan Disposition Patient Disposition: Home Condition: Stable Discharge Details Reason For Visit: Incarcerated Hernia Admit Date/Time: 09/01/24 14:26 Admit Provider: Zeeshan Marroquin Attending Provider: Zeeshan Marroquin [facility] [place] [facility] Hospital Course: This is a 54-year-old male who was admitted emergently for umbilical hernia repair. He presented with an incarcerated umbilical hernia contianing small bowel. A laparoscopic reduction of the hernia revealed vulnerable but viable small intestine and resection was not required. The hernia was repaired with mesh and the patient admitted overnight for observation given the duration and severity of incarcerated bowel. Overnight he had difficulty with pain control and sleep. He has pain with movement though the medication he receives relieves the pain. He denies any nausea or vomiting. He is able to tolerate clear liquids well without distention or discomfort. He was able to ambulate around the room. The abdominal binder was causing discomfort and tightness so it was removed by me. Discharge instructions and return precautions were reviewed with the patient. His diet was advanced to regular and he was discharged home when he tolerated it. Recommendations for Follow Up Recommended tests to be ordered by follow up provider: None. Follow up with Dr Jolley in 2 weeks for post op check Home Meds and New Rx's Prescriptions: New hydrocodone-acetaminophen 5-325 mg tablet 1 tab PO Q6H Qty: 14 0RF Continued aspirin [Adult Aspirin Regimen] 81 mg tablet,delayed release (DR/EC) 81 mg PO DAILY nitroglycerin 0.4 mg tablet, sublingual 0.4 mg sublingual Q5M PRN (Reason: chest pain) Qty: 20 0RF Rx Instructions: do not exceed 3 doses per episode lisinopril 20 mg tablet 20 mg PO DAILY 90 Days Qty: 90 3RF metoprolol succinate 50 mg tablet extended release 24 hr 50 mg PO DAILY Qty: 90 3RF atorvastatin 80 mg tablet 80 mg PO DAILY Qty: 90 3RF Discharge Instructions Additional Instructions: Shower anytime. Wash gently over skin glue with soapy hands, rinse, pat dry. Do not submerge incisions underwater. Wear abdominal binder for comfort only. If the binder is uncomfortable you do not need to wear it. Okay to walk, climb stairs, and do activities of daily life. Do not lift, push, or pull greater than 20 pounds for 4 weeks total. Do not vacuum and do not switch the laundry. Call the office for fever, uncontrolled pain, or incisional concerns. Monitor your incisions for signs of redness that is increasing or becoming painful as these could be signs of an infection. Activity:: See above Equipment/Supplies:: No Equipment Needed Diet:: As Tolerated Discharge Orders Discharge Orders: Discharge Order (Routine); Ordered 09/02/24 Ordered By: Tamy Jolley DS: Summary Time Spent with Patient providing and/or coordinating discharge services: Less than 30 minutes Status at Discharge Functional status at discharge: independent ambulation Overall status at discharge: patient is progressing back to baseline Mental Status: mental status grossly normal Speech and Movement: speech and movement normal Mood: congruent mood Affect: normal affect Exam Psych Mental Status: mental status grossly normal Speech and Movement: speech and movement normal Mood: congruent mood Affect: normal affect DS: Data Vitals/I&O Vitals and I&O: Vital Signs Temperature 97.5 F L 09/02/24 07:44 Temperature Source Temporal Artery Scan 09/02/24 07:44 Pulse 95 H 09/02/24 07:44 Pulse Rhythm Regular 09/01/24 15:34 Pulse 74 09/01/24 15:25 Respiratory Rate 14 09/01/24 18:22 Respiratory Effort Normal, Non-Labored 09/01/24 15:34 Respiratory Depth Normal 09/01/24 15:34 Respiratory Pattern Normal 09/01/24 15:34 Blood Pressure 156/104 H 09/02/24 07:44 Blood Pressure Mean 121 09/02/24 07:44 Blood Pressure Position Sitting 09/01/24 10:07 Pulse Oximetry 97 09/02/24 07:44 Respiratory End-tidal CO2 36 09/01/24 15:25 Oxygen Delivery Method Room Air 09/02/24 07:44 Oxygen Flow Rate 0 09/02/24 07:44 Pain Level 2 09/01/24 19:43 Comment PT ARRIVED IN PACU. 09/01/24 14:38 Intake & Output 09/01/24 09/01/24 09/02/24 11:59 23:59 11:59 Intake Total 1150 / 1150 100 / 100 Output Total 611 / 611 750 / 750 Balance 539 / 539 -650 / -650 Weight 175 lb 175 lb Intake: IV 600 / 600 100 / 100 Oral 550 / 550 Output: Urine 600 / 600 750 / 750 Estimated Blood Loss Other: Urine Color Yellow Yellow Urine Appearance Clear Clear Urine Odor Normal None Comment Ruiz was placed in OR and removed, no ruiz in place on admission to /s. Emesis Description None Data Completed and Pending Labs on day of discharge: Labs from last 24 hours 09/02/24 09/01/24 09/01/24 06:11 13:17 11:35 WBC 10.11 RBC 4.47 Hgb 12.9 L Hct 39.5 L MCV 88 MCH 28.9 MCHC 32.7 RDW 13.4 Plt Count 271 MPV 10.3 Immature Gran % 0.5 Neutrophils % 80.6 Lymphocytes % 10.0 Monocytes % 8.1 Eosinophils % 0.4 Basophils % 0.4 Nucleated RBC % 0.0 Absolute Neutrophils 8.15 H Absolute Lymphocytes 1.01 L Absolute Monocytes 0.82 H Absolute Eosinophils 0.04 Absolute Basophils 0.04 Sodium 140 Potassium 3.7 Chloride 103 Carbon Dioxide 29.5 Anion Gap 7.5 BUN 3 L Creatinine 0.5 L Est GFR (CKD-EPI 2020) 121.96 Glucose 104 Calcium 8.8 Magnesium Total Bilirubin AST ALT Alkaline Phosphatase Troponin I Cancelled 4 Total Protein Albumin Lipase 09/01/24 10:20 WBC RBC Hgb Hct MCV MCH MCHC RDW Plt Count MPV Immature Gran % Neutrophils % Lymphocytes % Monocytes % Eosinophils % Basophils % Nucleated RBC % Absolute Neutrophils Absolute Lymphocytes Absolute Monocytes Absolute Eosinophils Absolute Basophils Sodium 137 Potassium 3.5 Chloride 102 Carbon Dioxide 21.8 Anion Gap 13.2 H BUN 14 Creatinine 0.6 L Est GFR (CKD-EPI 2020) 115.43 Glucose 139 H Calcium 8.9 Magnesium 2.0 Total Bilirubin 0.8 AST 24 ALT 40 Alkaline Phosphatase 62 Troponin I 4 Total Protein 7.5 Albumin 4.1 Lipase 31 PFSH All Active Problems Incarcerated umbilical hernia (Acute) Incarcerated umbilical hernia (Acute) Varicose veins of left calf (Acute) Phlebitis (Acute) Superficial thrombophlebitis of left leg (Acute) Coronary artery disease (Chronic) Hyperlipidemia (Acute) Hernia (Chronic) POSSIBLE Dx Erectile dysfunction (Acute) Circadian rhythm disorder (Acute) Hypertension (Chronic) Alopecia areata (Chronic 07/03/17) [facility] Family History Mother No problems noted. Father , cancer No problems noted. 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 [employer] Pets and animals: Yes Pets and animals: dog(s) Sexually active: Yes Do you think of yourself as: straight/heterosexual Current gender identity: male What is your relationship status?: How often do you talk on the phone with friends or family?: three or more times per week How often do you get together with friends or relatives?: decline to answer Do you belong to any clubs or organized social groups?: no Panel score (0-1 are the most socially isolated patients): 2 What type of physical activity do you participate in: none and other Details: physically active daily Seatbelt use: sometimes Helmet use: No Drive intox or ride w/intox pile 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
--- NOTE | 2024-09-02 11:12 | PDOC.CMDIS ---
Date of service: 09/02/24 Time of Service: 12:49 LACE Index Scoring Tool Questions: Length of Stay (in days): 1 Was the patient admitted via the E.D.?: Yes E.D. Visits: 3 Answers: Total Score: 7 Risk of Readmission: Low Risk Care Management Discharge Plan Reason for Hospitalization: Incarcerated Hernia Discharge Plan: Maxim will be discharged home today. He will follow up with his community providers, surgical team, and discharge plan of care. Patient/Family Education Needs: Review of discharge instructions, activity, limitations, and plan of care. Discuss Ask Me Three.
== END 2024-09-02 12:45 | disposition home or self-care (01) ==
LOC: ER 11:51 → SUR 12:39 → MS 15:37
PROVIDERS: Admitting Provider Surgery; Emergency Provider Emergency Medicine; PCP Family Medicine; Responsible Provider Family Medicine; Visit Provider Surgery
PROC: (CPT 49650; principal; 2024-09-01 12:00)
DX: K42.0 Umbilical hernia with obstruction, without gangrene (principal); I10 Essential (primary) hypertension; I25.10 Atherosclerotic heart disease of native coronary artery without angina pectoris; I83.92 Asymptomatic varicose veins of left lower extremity; E78.5 Hyperlipidemia, unspecified; L63.9 Alopecia areata, unspecified; I25.2 Old myocardial infarction
CPT/HCPCS: 49592; 36415; 80048; 80053; 83690; 93005; 96365; 96366; 96375; 96376; 99285; 74177; 83605; 83735; 84484; 85025; 85610; 93010; C1781; G0378; J0131; J0690; J1100; J1171; J2003; J2250; J2371; J2405; J2704; J3475; J3490

== ENCOUNTER 2024-09-04 22:43 | Observation (INO) | payer OTHER, SELFPAY ==
[2024-09-04] VITALS (8 sets, daily range): BP systolic 114–122; BP diastolic 88–97; PULSE 104–125; RESP 19–32; TEMP 36.5; O2SAT 94–96
--- NOTE | 2024-09-04 23:28 | ED.GENADUL_ITS ---
Discharge Plan Disposition Patient Disposition: Admit to [facility] Condition: Serious Discharge Details Clinical Impression: Obstruction of small intestine after surgical procedure, CAD (coronary artery disease), Hypertension Primary Care Provider: Juan Euceda ED Provider: Ann Singletary Home Meds and New Rx's Prescriptions: No Action aspirin [Adult Aspirin Regimen] 81 mg tablet,delayed release (DR/EC) 81 mg PO DAILY nitroglycerin 0.4 mg tablet, sublingual 0.4 mg sublingual Q5M PRN (Reason: chest pain) Qty: 20 0RF Rx Instructions: do not exceed 3 doses per episode lisinopril 20 mg tablet 20 mg PO DAILY 90 Days Qty: 90 3RF metoprolol succinate 50 mg tablet extended release 24 hr 50 mg PO DAILY Qty: 90 3RF atorvastatin 80 mg tablet 80 mg PO DAILY Qty: 90 3RF hydrocodone-acetaminophen 5-325 mg tablet 1 tab PO Q6H Qty: 14 0RF HPI General Mode of arrival: ambulatory . Date/Time Provider Initiated Documentation: 09/04/24 22:48 . Limitations to Documentation: no limitations . Information obtained by: patient . HPI Narrative: 54yo M POD#3 s/p repair of incarcerated umbilical hernia presenting with vomiting. Has only been able to keep down small sips of fluids for the last two days since hospital discharge. No BM since surgery. No fevers. Has dull/crampy lower abdominal pain around his incision, 2/10, not worsening over the past two days. Well controlled with home medications. He is otherwise in his usual state of health. Related Data Home Medications ?Medication ?Instructions ?Recorded ?Confirmed lisinopril 20 mg tablet 20 mg PO DAILY 90 days #90 t ab-caps 04/13/24 09/04/24 metoprolol succinate 50 mg 50 mg PO DAILY #90 tabs 09/04/24 tablet,extended release 24 hr atorvastatin 80 mg tablet 80 mg PO DAILY #90 tabs 04/1809/04/24 aspirin 81 mg tablet,delayed 81 mg PO DAILY 05/14/24 0 09/04/24 release (Adult Aspirin Regimen) nitroglycerin 0.4 mg sublingual 0.4 mg sublingual Q5M PRN chest 06/09/24 09/04/24 tablet pain #20 tabs hydrocodone 5 mg-acetaminophen 325 1 tab PO Q6H #14 ta bs 09/02/24 09/04/24 mg tablet Previous Rx's ?Medication ?Instructions ?Recorded lisinopril 20 mg tablet 20 mg PO DAILY 90 days #90 t ab-caps 04/13/24 metoprolol succinate 50 mg 50 mg PO DAILY #90 tabs tablet,extended release 24 hr atorvastatin 80 mg tablet 80 mg PO DAILY #90 tabs 04/18 nitroglycerin 0.4 mg sublingual 0.4 mg sublingual Q5M PRN chest 06/09/24 tablet pain #20 tabs hydrocodone 5 mg-acetaminophen 325 1 tab PO Q6H #14 ta bs 09/02/24 mg tablet Allergies Allergy/AdvReac Type Severity Reaction Status Date / Time cat dander Allergy Severe head Verified 09/04/24 23:05 congestion, SOB, Watery Eyes. ibuprofen Allergy Intermediate Hives Verified 09/04/24 23:05 Dust Allergy Intermediate head Uncoded 09/04/24 23:05 congestion General Stated Complaint: Abd Prob MORGAN: 3 Review of Systems Narrative: see HPI Exam Narrative Exam Narrative: General: Alert, well appearing, well nourished, in no acute distress. Head: Normocephalic, atraumatic Neck: Trachea midline, ?Neck supple. ENT: ?Dry mucous membranes.? No oropharygeal lesions or exudate. Cardiac: ?RRR, no murmurs appreciated Resp: No respiratory distress. CTAB. Abd: ?Soft, non-distended, moderately TTP diffusely. Dressing to surgical site intact, no drainge, no surrounding erythema. : ?No suprapubic tenderness. Extremities: ?No deformities.? No peripheral edema. Neurologic: GCS 15. ? Moves all extremities freely against gravity Course Vital Signs Vital signs: Vital Signs Temperature 36.5 C 09/04/24 23:03 Pulse 125 H 09/04/24 23:03 Respiratory Rate 09/04/24 23:03 Blood Pressure 120/89 09/04/24 23:03 Pulse Oximetry 94 09/04/24 23:03 Temperature 36.5 C 09/04/24 23:03 Pulse 125 H 09/04/24 23:03 Respiratory Rate 20 09/04/24 23:03 Blood Pressure 120/89 09/04/24 23:03 Blood Pressure Position Sitting 09/04/24 23:03 Pulse Oximetry 94 09/04/24 23:03 Oxygen Delivery Method Room Air 09/04/24 23:03 Oxygen Flow Rate 0 09/04/24 23:03 Medical Decision Making 54yo M with hx HTN, CAD, POD#3 s/p repair of incarcerated umbilical hernia presenting with vomiting, only been able to keep down small sips of fluids for the last two days since hospital discharge. Pain well controlled on home medications and not increasing. No BM since surgery. Tachycardiac on arrival to 120's, vital signs otherwise reassuring, afebrile. HR improved to 100's without intervention. Mild diffuse abdominal tenderness to palpation on exam and dry MM. Offered pain medication here which patient declined. Will give zofran and 1L IVFB while awaiting results of workup. -Labs reviewed as below, CBC with mild leukocytosis (nonspecific) and no anemia, CMP with no actionable abnormalities (slightly elevated gap, suspect ketones), Mg normal, lactate normal. -CT abd pelvis independently reviewed; no free fluid on my view, radiology read concerning for partial small bowel obstruction vs post-op ileus. On reassessment HR in 80's, abdomen remains only minimally tender. Discussed with [facility] surgery [place]; will place ng tube and admit patient to medicine, surgery to see in the am. Discussed with [facility] hospitalist Dr. Reyes; pt accepted to medicine service. Awaiting admission orders and transfer to the [facility] or. Lab Data Lab results reviewed: Yes I reviewed the patient's lab results. Labs: Laboratory Tests Range/Units 09/04/24 23:25 WBC (4.4-10.8) 10^3/uL 13.48 H RBC (4.36-5.78) 10^6/uL 5.06 Hgb (13.5-17.5) g/dL 14.7 Hct (40.0-50.0) % 43.8 MCV (80-95) fL 87 MCH (27.0-33.0) pg 29.1 MCHC (32.0-36.0) % 33.6 RDW (11.8-14.1) % 13.4 Plt Count (130-400) 10^3/uL 381 MPV (8.0-11.0) fL 9.9 Immature Gran % % 0.3 Neutrophils % % 70.9 Lymphocytes % % 13.6 Monocytes % % 10.1 Eosinophils % % 4.7 Basophils % % 0.4 Nucleated RBC % (0.0-0.3) % 0.0 Absolute Neutrophils (1.2-6.7) 10^3/uL 9.56 H Absolute Lymphocytes (1.2-3.4) 10^3/uL 1.83 Absolute Monocytes (0.1-0.8) 10^3/uL 1.36 H Absolute Eosinophils (0.0-0.7) 10^3/uL 0.63 Absolute Basophils (0.0-0.2) 10^3/uL 0.05 VBG Lactate (<or=2.0) mmol/L 1.4 Sodium (136-145) mmol/L 136 Potassium (3.5-5.1) mmol/L 3.9 Chloride (98-107) mmol/L 96 L Carbon Dioxide (21.0-32.0) mmol/L 25.3 Anion Gap (3-11) mmol/L 14.7 H BUN (7-18) mg/dL 16 Creatinine (0.70-1.30) mg/dL 0.8 Est GFR (CKD-EPI 2020) (mL/min/1.73m2) 105.82 Glucose (74-106) mg/dL 125 H Calcium (8.5-10.1) mg/dL 8.9 Magnesium (1.8-2.4) mg/dL 2.0 Total Bilirubin (0.2-1.0) mg/dL 0.8 AST (15-37) U/L 18 ALT (16-63) U/L 26 Alkaline Phosphatase (46-116) U/L 63 Total Protein (6.4-8.2) g/dL 7.8 Albumin (3.4-5.0) g/dL 3.8 PFSH All Active Problems (Updated 09/05/24 @ 04:30 by Brett Reyes) Hypertension (Chronic) CAD (coronary artery disease) (Chronic) Obstruction of small intestine after surgical procedure (Acute) Incarcerated umbilical hernia (Acute) Varicose veins of left calf (Acute) Phlebitis (Acute) Superficial thrombophlebitis of left leg (Acute) Coronary artery disease (Chronic) Hyperlipidemia (Chronic) Hernia (Chronic) POSSIBLE Dx Erectile dysfunction (Acute) Circadian rhythm disorder (Acute) Hypertension (Chronic) Alopecia areata (Chronic 07/03/17) [facility] Family History Mother No problems noted. Father , cancer No problems noted. 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 [employer] Pets and animals: Yes Pets and animals: dog(s) Sexually active: Yes Do you think of yourself as: straight/heterosexual Current gender identity: male What is your relationship status?: How often do you talk on the phone with friends or family?: three or more times per week How often do you get together with friends or relatives?: decline to answer Do you belong to any clubs or organized social groups?: no Panel score (0-1 are the most socially isolated patients): 2 What type of physical activity do you participate in: none and other Details: physically active daily Seatbelt use: sometimes Helmet use: No Drive intox or ride w/intox helper 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
[2024-09-04 23:31] LABS: Abs Immature Grans 0.04 10^3/uL (0.0-0.06); HCT 43.8 % (40.0-50.0); HGB 14.7 g/dL (13.5-17.5); Immature Grans % 0.3 %; MCH 29.1 pg (27.0-33.0); MCHC 33.6 % (32.0-36.0); MCV 87 fL (80-95); MPV 9.9 fL (8.0-11.0); Platelet Count 381 10^3/uL (130-400); RBC 5.06 10^6/uL (4.36-5.78); RDW 13.4 % (11.8-14.1); RDW-SD 42.6 fL; WBC 13.48 10^3/uL (4.4-10.8)
[2024-09-04 23:47] LABS: ALT 26 U/L (16-63); AST 18 U/L (15-37); Albumin 3.8 g/dL (3.4-5.0); Alkaline Phosphatase 63 U/L (46-116); Anion Gap 14.7 mmol/L (3-11); BUN 16 mg/dL (7-18); Bilirubin, Total 0.8 mg/dL (0.2-1.0); CO2 25.3 mmol/L (21.0-32.0); Calcium 8.9 mg/dL (8.5-10.1); Chloride 96 mmol/L (98-107); Estimated GFR 105.82 (mL/min/1.73m2); Glucose 125 mg/dL (74-106); Magnesium 2.0 mg/dL (1.8-2.4); Potassium 3.9 mmol/L (3.5-5.1); Sodium 136 mmol/L (136-145); Total Protein 7.8 g/dL (6.4-8.2)
[2024-09-04] MEDS: Breeza Beverage 473 ML BTL PO ×2 (23:52→23:53)
[2024-09-04] MEDS: Omnipaque 350 MG/ML 50 ML BTL PO (23:52)
[2024-09-04] MEDS: Normal Saline 1,000 ML 1000 ML IV (23:59)
[2024-09-04] MEDS: Ondansetron 4 MG/2 ML VIAL IVP (23:59)
[2024-09-05] VITALS (60 sets, daily range): BP systolic 117–165; BP diastolic 78–101; PULSE 86–107; RESP 14–34; TEMP 36.4–37.3; O2SAT 93–99
[2024-09-05] MEDS: Omnipaque 350 MG/ML 100 ML BTL 75 ML IJ (01:05)
[2024-09-05] MEDS: Normal Saline - Diluent 50 ML VIAL IJ (01:06)
--- NOTE | 2024-09-05 01:43 | DI.CT_ITS ---
Exam(s) CT ABDOMEN PELVIS W EXAM: CT ABDOMEN PELVIS W CLINICAL HISTORY: N/V post op hernia repair TECHNIQUE: Imaging Protocol: Axial computed tomography images with coronal and sagittal reformatted images were created and reviewed. CONTRAST MATERIAL: Intravenous: Omnipaque 350 Contrast volume:75 mL Oral: Yes COMPARISON: CT CT ABDOMEN PELVIS W from 09/01/2024 FINDINGS: ABDOMEN: Lung Bases: There are new small bilateral pleural effusions and subjacent infiltrates, right greater than left. Coronary artery calcifications are present. Liver: Normal density. No measurable mass. Portal, Superior Mesenteric, and Splenic Veins: Unremarkable. Gallbladder and Biliary Tract: No radiodense calculus or dilation. Pancreas: Normal density, no abnormal calcifications or inflammatory process. Spleen: Normal. There is a tiny hypodensity in the inferior aspect of the spleen which may represent a small cyst or hemangioma. Adrenals: No masses seen. Kidneys: Normal size, contour and axis. No radiodense stones or obstructive uropathy. No masses seen. Abdominal Aorta: Abdominal portion non-dilated. Atherosclerotic calcification is present. Bowel: There are diverticula seen in the colon, but no evidence of acute diverticulitis. There are dilated loops of small and large bowel present. The stomach is very distended. Air-fluid levels are seen throughout the bowel. There is no pneumatosis. There is no portal venous gas. Appendix is unr emarkable. Peritoneal Cavity: There is a small amount of abdominal and pelvic ascites. No focal fluid collection is seen to suggest an abscess. There is a small amount of air seen within the peritoneal cavity. This likely reflects the patient's recent bowel surgery. Lymph Nodes: Within normal limits. Bones: Within normal limits for the patient's age. Soft Tissues: There are bilateral fat containing inguinal hernias. There has been a repair of the anterior abdominal wall hernia. There is a small amount of subcutaneous air in the region. No focal fluid collection is seen to suggest an abscess. PELVIS: Bladder: Symmetric distention, no gross wall thickening. Reproductive Organs: Unremarkable as visualized. Lymph Nodes: Within normal limits. Bones: Within normal limits for the patient's age. IMPRESSION: 1. There are dilated loops of bowel including the small bowel and the colon. This likely reflects an ileus. There is no definite transition point noted but an obstructive process cannot be entirely excluded. 2. New small bilateral pleural effusions and subjacent infiltrates which may represent atelectasis or pneumonia. 3. Small amount of air within the abdomen which is likely postoperative. 4. Small amount of ascites in the abdomen and pelvis. No focal fluid collection is seen to suggest an abscess. 5. Marked distension of the stomach. The distal stomach/pylorus is of normal size with question of thickening of the wall. This may be due to underdistention. Inflammation/infectious process cannot be entirely excluded. The less likely, considering prior examinations, neoplasm cannot be entirely ex cluded. 6. The preliminary [facility] report was reviewed. RADIATION DOSE DELIVERED: 449.04mGy.cm Total DLP DATA REPOSITORY: All CT scans at this facility are submitted to the National Radiology Data Registry (NRDR) Dose Index Registry (DIR) with the [employer] (A[employer]). RADIATION OPTIMIZATION: All CT scans at this facility use at least one of these dose optimization techniques: automated exposure control; mA and/or kV adjustment per patient size (includes targeted exams where dose is matched to clinical indication); or iterative reconstruction.
--- NOTE | 2024-09-05 01:56 | DI.[facility]AD_ITS ---
PROCEDURE INFORMATION: Exam: CT Abdomen And Pelvis With Contrast Exam date and time: 09/05/2024 1:07 AM Age: 54 years old Clinical indication: Nausea and vomiting; Prior surgery; Surgery date: 3-7 days post-operative; N/v post op hernia repair. Patient had a hernia repair on 09/01/24 TECHNIQUE: Imaging protocol: Computed tomography of the abdomen and pelvis with contrast. Radiation optimization: All CT scans at this facility use at least one of these dose optimization techniques: automated exposure control; mA and/or kV adjustment per patient size (includes targeted exams where dose is matched to clinical indication); or iterative reconstruction. Contrast material: [id number]; Contrast volume: 75 ml; Contrast route: INTRAVENOUS (IV); Other contrast: Oral, Ttsiclpce524/Breeza , Dxqpttpnc524: 50/Breeza: 946 ; COMPARISON: CT ABDOMEN PELVIS W 09/01/2024 10:37 AM FINDINGS: Lungs: Linear bibasilar opacities most consistent with subsegmental atelectasis. Pleural spaces: Small bilateral pleural effusions. Liver: The liver is unremarkable. Gallbladder and biliary ducts: No gallstones. Nondistended. No wall thickening. Pancreas: The pancreas is unremarkable. Spleen: No splenomegaly. Tiny splenic cysts. Adrenal glands: The adrenal glands are unremarkable. Kidneys and ureters: The kidneys are normal. Stomach and bowel: Dilated fluid-filled loops of small bowel without clear transition point , characteristic of moderate grade partial small bowel obstruction versus postop ileus. The stomach is distended with gas and fluid. There is moderate wall thickening at the distal stomach/pylorus, this can be seen in gastritis, however underlying neoplasm can not be entirely excluded. Recommend direct visualization (endoscopy). Appendix: No evidence of appendicitis. Intraperitoneal space: Unremarkable. No free air. No significant fluid collection. Vasculature: Patent vessels without evidence of aneurysm, dissection, occlusion or critical stenosis. Lymph nodes: Unremarkable. No enlarged lymph nodes. Urinary bladder: No focal wall thickening of the urinary bladder. Reproductive: Unremarkable as visualized. Bones/joints: No acute osseous abnormality. Soft tissues: Moderate-sized fluid and omentum containing umbilical hernia. Bilateral fat containing inguinal hernias. Soft tissues are unremarkable as visualized. Other findings: Trace fluid in the pelvis IMPRESSION: 1. Small bilateral pleural effusions. 2. Dilated fluid-filled loops of small bowel without clear transition point , characteristic of moderate grade partial small bowel obstruction versus postop ileus. 3. The stomach is distended with gas and fluid. There is moderate wall thickening at the distal stomach/pylorus, this can be seen in gastritis, however underlying neoplasm can not be entirely excluded. Recommend direct visualization (endoscopy). Dictated and Authenticated by: Mounika Davenport MD. Orderin Hayder Juarez MD
--- NOTE | 2024-09-05 03:28 | DI.RAD_ITS ---
Exam(s) XR PORTABLE CHEST AP EXAM: XR PORTABLE CHEST AP CLINICAL HISTORY: tube check TECHNIQUE: 2D digital imaging was performed of the chest. One image was obtained. An AP view was obtained. COMPARISON: CR,XR XR PORTABLE CHEST AP from 05/03/[address] ABDOMEN PELVIS W from 09/05/2024 FINDINGS: There has been interval placement of an enteric tube. The tip is in good position in the stomach. MEDIASTINUM: Normal. HEART: Normal. PULMONARY VASCULATURE: Normal. LUNGS: There is decreased lung volume. No focal infiltrates are present. PLEURAL SPACE: There is blunting of the right costophrenic angle consistent with the patient's known small right pleural effusion. BONE:Within normal limits for the patient's age. OTHER FINDINGS:There are dilated loops of small and large bowel present which may represent an ileus or possible obstruction. There has been improvement compared to the CT examination from earlier in the day. IMPRESSION: 1. Interval placement of an enteric tube. The tip is in good position within the stomach. 2. Improvement in the appearance of the distended bowel. There are persistent dilated loops of small and large bowel which may represent an ileus. Bowel obstruction cannot be entirely excluded. 3. The preliminary [facility] report was reviewed. DATA REPOSITORY: RADIATION DOSE DELIVERED:
[2024-09-05] MEDS: Benzocaine 20% 60 ML CAN (03:41)
[2024-09-05] MEDS: Normal Saline 1,000 ML 150 ML IV ×2 (03:42→10:16)
--- NOTE | 2024-09-05 04:25 | W.PM.HP.N ---
Date of service: 09/05/24 Time of Service: 04:25 Assessment and Plan Assessment and plan (1) Obstruction of small intestine after surgical procedure: Start date: 09/05/24 Status: Acute Assessment and plan: This is a 54-year-old gentleman with recent repair of an incarcerated umbilical hernia with slow recovery at home now exacerbated with moderate grade small bowel obstruction versus postop ileus. He also has gastritis. Surgery has been consulted and will follow patient for postoperative care. He has an NG tube placed which will remain in place until surgery evaluates. He will be n.p.o. until further evaluated. His WBC is slightly elevated but there is no signs of overt infection with antibiotics to be determined by surgery. He is a full code. (2) CAD (coronary artery disease): Status: Chronic Assessment and plan: Remote NM in 2023 with patient having no symptoms of cardiac ischemia presently. He does carry nitroglycerin for sublingual use. He continues to smoke and is on a baby aspirin. He has no strong family history of heart disease. (3) Hypertension: Status: Chronic Assessment and plan: Controlled presently with medicines to be adjusted with patient's acute small bowel obstruction. Metoprolol will be given as tolerated through the NG tube versus IV if not able to take orally.. (4) Hyperlipidemia: Status: Chronic Assessment and plan: Continue outpatient medical therapy. History of Present Illness History of Present Illness Chief Complaint: Abdominal pain and decreased appetite 3 days postop. Narrative: This is a 54-year-old male patient who has a history of an umbilical hernia which was reducible up to 2 years ago then was not reducible and had planned surgery which was postponed by an NM occurring May 03, 2023. He had planned surgery and there was increased pain and more difficulty with attempt to reduce his hernia prior to recent surgery. He had repair of an incarcerated umbilical hernia at this institution 09/01/2024 and has not had a bowel movement since returning home with only being able to keep down fluids. Postoperatively 09/02/2024, the patient was passing gas and ate a full meal prior to discharge. He states that since home his appetite is decreased and he has had some nausea with some vomiting intermittently. He also has had bloating which worsened the day prior to presentation, he had eaten 2 Thanksgiving meals. He was having some discomfort around his lower abdomen and the incisions. There is no erythema or swelling at the incisions. Imaging did reveal small bowel obstruction versus postoperative ileus and surgery has been consulted to follow-up with her postoperative small bowel obstruction. NG was placed in the ED to low intermittent suction and patient's symptoms have slightly improved. He is uncomfortable with the NG tube in place and is holding his head still. His pain was only a 2 out of 10 upon admission and he was mostly uncomfortable with his distention. He will be admitted to the medical service with surgery consultation. Antihypertensives will be held except for oral metoprolol as needed. Medically he is stable. He is a full code. Review of Systems Narrative: 13 point review of systems otherwise unrevealing or stable. Patient does smoke tobacco and does not want NicoDerm. He has not been taking all of his medicines as prescribed recently. He denies any significant weight change. PFSH All Active Problems (Updated 09/05/24 @ 04:30 by Brett Reyes) Hypertension (Chronic) CAD (coronary artery disease) (Chronic) Obstruction of small intestine after surgical procedure (Acute) Incarcerated umbilical hernia (Acute) Varicose veins of left calf (Acute) Phlebitis (Acute) Superficial thrombophlebitis of left leg (Acute) Coronary artery disease (Chronic) Hyperlipidemia (Chronic) Hernia (Chronic) POSSIBLE Dx Erectile dysfunction (Acute) Circadian rhythm disorder (Acute) Hypertension (Chronic) Alopecia areata (Chronic 07/03/17) [facility] Family History Mother No problems noted. Father , cancer No problems noted. 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 [employer] Pets and animals: Yes Pets and animals: dog(s) Sexually active: Yes Do you think of yourself as: straight/heterosexual Current gender identity: male What is your relationship status?: How often do you talk on the phone with friends or family?: three or more times per week How often do you get together with friends or relatives?: decline to answer Do you belong to any clubs or organized social groups?: no Panel score (0-1 are the most socially isolated patients): 2 What type of physical activity do you participate in: none and other Details: physically active daily Seatbelt use: sometimes Helmet use: No Drive intox or ride w/intox taxicab 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 Meds Allergies and Home Medications Allergies Allergy/AdvReac Type Severity Reaction Status Date / Time cat dander Allergy Severe head Verified 09/04/24 23:05 congestion, SOB, Watery Eyes. ibuprofen Allergy Intermediate Hives Verified 09/04/24 23:05 Dust Allergy Intermediate head Uncoded 09/04/24 23:05 congestion Home Medications ?Medication ?Instructions ?Recorded ?Confirmed ?Type lisinopril 20 mg tablet 20 mg PO DAILY 90 days #90 tab-caps 04/13/24 09/04/24 Rx metoprolol succinate 50 mg 50 mg PO DAILY #90 tabs 04/14/24 09/04/24 Rx tablet,extended release 24 hr atorvastatin 80 mg tablet 80 mg PO DAILY #90 tabs 04/27/24 09/04/24 Rx aspirin 81 mg tablet,delayed 81 mg PO DAILY 05/14/24 09/04/24 History release (Adult Aspirin Regimen) nitroglycerin 0.4 mg sublingual 0.4 mg sublingual Q5M PRN chest 06/09/24 09/04/24 Rx tablet pain #20 tabs hydrocodone 5 mg-acetaminophen 325 1 tab PO Q6H #14 tabs 09/02/24 09/04/24 Rx mg tablet Exam Narrative Exam Narrative: General: Patient appears uncomfortable with NG tube in place lying very still holding the 2 away from his nose, he is in moderate distress from his abdominal distention, he is alert and oriented x 3. He has a normal build. HEENT: Normocephalic, eyes with pupils equal and reactive to light symmetrically, extraocular movement intact and sclera anicteric. Oropharynx with dry mucosa and fair dentition. NG tube is in place without nasal discharge. NG tube is draining dark bilious material. Neck: Supple without JVD. Back: Stooped posture without CVA tenderness. Lungs: Aeration clear to auscultation percussion. Bronchovesicular breath sounds diffusely. No expiratory wheeze. Heart: Regular rate and rhythm with no murmurs gallops appreciated. Abdomen: Protuberant with decreased bowel sounds in all quadrants, soft to palpation with no focal guarding but generally uncomfortable with deep palpation. No palpable hepatosplenomegaly. Clean incisions over his abdomen. Genitalia/rectal: Exam deferred. Extremities: Without clubbing, cyanosis or pitting edema. Fair capillary refill. Skin: Normal color, warm and dry. Neuro: Cranial nerves II through XII gross intact, no focalized motor deficits and no tremor. Psych: Depressed mood and anxious affect, no abnormal thought processes. Remote recent memory intact. Results Imaging Imaging Studies: Exam: CT Abdomen And Pelvis With Contrast Exam date and time: 09/05/2024 1:07 AM Age: 54 years old Clinical indication: Nausea and vomiting; Prior surgery; Surgery date: 3-7 days post-operative; N/v post op hernia repair. Patient had a hernia repair on 09/01/24 ; COMPARISON: CT ABDOMEN PELVIS W 09/01/2024 10:37 AM FINDINGS: Lungs: Linear bibasilar opacities most consistent with subsegmental atelectasis. Pleural spaces: Small bilateral pleural effusions. Liver: The liver is unremarkable. Gallbladder and biliary ducts: No gallstones. Nondistended. No wall thickening. Pancreas: The pancreas is unremarkable. Spleen: No splenomegaly. Tiny splenic cysts. Adrenal glands: The adrenal glands are unremarkable. Kidneys and ureters: The kidneys are normal. Stomach and bowel: Dilated fluid-filled loops of small bowel without clear transition point , characteristic of moderate grade partial small bowel obstruction versus postop ileus. The stomach is distended with gas and fluid. There is moderate wall thickening at the distal stomach/pylorus, this can be seen in gastritis, however underlying neoplasm can not be entirely excluded. Recommend direct visualization (endoscopy). Appendix: No evidence of appendicitis. Intraperitoneal space: Unremarkable. No free air. No significant fluid collection. Vasculature: Patent vessels without evidence of aneurysm, dissection, occlusion or critical stenosis. Lymph nodes: Unremarkable. No enlarged lymph nodes. Urinary bladder: No focal wall thickening of the urinary bladder. Reproductive: Unremarkable as visualized. Bones/joints: No acute osseous abnormality. Soft tissues: Moderate-sized fluid and omentum containing umbilical hernia. Bilateral fat containing inguinal hernias. Soft tissues are unremarkable as visualized. Other findings: Trace fluid in the pelvis IMPRESSION: 1. Small bilateral pleural effusions. 2. Dilated fluid-filled loops of small bowel without clear transition point , characteristic of moderate grade partial small bowel obstruction versus postop ileus. 3. The stomach is distended with gas and fluid. There is moderate wall thickening at the distal stomach/pylorus, this can be seen in gastritis, however underlying neoplasm can not be entirely excluded. Recommend direct visualization (endoscopy). Labs 09/04/24 23:25 09/04/24 23:25 Labs: Laboratory Results - last 24 hr 09/04/24 23:25 WBC 13.48 H RBC 5.06 Hgb 14.7 Hct 43.8 MCV 87 MCH 29.1 MCHC 33.6 RDW 13.4 Plt Count 381 MPV 9.9 Immature Gran % 0.3 Neutrophils % 70.9 Lymphocytes % 13.6 Monocytes % 10.1 Eosinophils % 4.7 Basophils % 0.4 Nucleated RBC % 0.0 Absolute Neutrophils 9.56 H Absolute Lymphocytes 1.83 Absolute Monocytes 1.36 H Absolute Eosinophils 0.63 Absolute Basophils 0.05 VBG Lactate 1.4 Sodium 136 Potassium 3.9 Chloride 96 L Carbon Dioxide 25.3 Anion Gap 14.7 H BUN 16 Creatinine 0.8 Est GFR (CKD-EPI 2020) 105.82 Glucose 125 H Calcium 8.9 Magnesium 2.0 Total Bilirubin 0.8 AST 18 ALT 26 Alkaline Phosphatase 63 Total Protein 7.8 Albumin 3.8 Last Vital Signs Temp 36.5 C 09/05/24 04:05 Pulse 98 H 09/05/24 04:05 Resp 16 09/05/24 04:05 BP 129/87 09/05/24 04:05 Pulse Ox 95 09/05/24 04:05 Time Spent Time spent with Patient: >75 minutes Time was spent: preparing to see the patient(eg.review tests), obtaining and/or reviewing separately otained hiistory, ordering medications,tests, procedures, referring, communicating with other health care support representative, indepentently interpreting results and care coordination
--- NOTE | 2024-09-05 05:03 | DI.VRAD_ITS ---
PROCEDURE INFORMATION: Exam: XR Chest Exam date and time: 09/05/2024 3:27 AM Age: 54 years old Clinical indication: Device placement; Ng tube check TECHNIQUE: Imaging protocol: Radiologic exam of the chest. Views: 1 view. COMPARISON: CR XR PORTABLE CHEST AP 05/03/2023 4:43 AM FINDINGS: Tubes, catheters and devices: Enteric tube with distal portion in the stomach. Lungs: Low lung volumes. Pleural spaces: Small right pleural effusion suspected. Heart/Mediastinum: Unremarkable. No cardiomegaly. Bones/joints: Unremarkable. Gastrointestinal tract: Upper abdominal bowel is prominently distended. IMPRESSION: Enteric tube in good position. Small right pleural effusion. Distended upper abdominal bowel which may be related to ileus or obstruction. Dictated and Authenticated by: Ann Milan MD. Orderin Hayder Juarez MD
--- NOTE | 2024-09-05 06:40 | W.PC.ACHO ---
Registration Status: ADM IN Primary Language: Preferred Language: Turkish ED Information & Data Chief Complaint Abd Prob 09/05/24 04:05 Chief Complaint Abd Prob 09/04/24 23:34 Triage Note 2/10 lower abd pain. Nausea 09/04/24 23:03 with eating. last BM 08/31. Recent hernia surgery 09/01. Most Recent Vital Signs Temperature 36.5 C 09/05/24 04:05 Pulse 98 H 09/05/24 05:46 Pulse Rhythm Regular 09/05/24 06:00 Pulse 99 H 09/05/24 05:31 Respiratory Rate 22 09/05/24 05:46 Respiratory Effort Normal, Non-Labored 09/05/24 06:00 Respiratory Depth Normal 09/05/24 06:00 Respiratory Pattern Normal 09/05/24 06:00 Blood Pressure 131/88 09/05/24 05:30 Blood Pressure Mean 102 09/05/24 05:30 Blood Pressure Position Sitting 09/04/24 23:03 Pulse Oximetry 95 09/05/24 05:46 Oxygen Delivery Method Room Air 09/05/24 06:00 Oxygen Flow Rate 0 09/05/24 06:00 Pain Level 4 09/05/24 06:00 Allergies cat dander Allergy (Severe, Verified 09/04/24 23:05) head congestion, SOB, Watery Eyes. [facility] ibuprofen Allergy (Intermediate, Verified 09/04/24 23:05) Hives Dust Allergy (Intermediate, Uncoded 09/04/24 23:05) head congestion [facility] Active Medications Generic Name Dose Route Start Last Admin Trade Name Freq PRN Reason Stop Dose Admin Sodium Chloride 1,000 mls @ 150 mls/hr 09/05/24 02:30 09/05/24 03:42 Saline 1000ml Bag IV 150 mls/hr INFUSION EPIFANIO Administration IV IV Catheter Type [Right Saline Lock Antecubital] IV Catheter Gauge [Right 18 Antecubital] Diet Orders Category Date Time Status Nothing Per Oral [DIET] Nutrition 09/05/24 05:52 Active Diagnostics 09/05/24 09/04/24 Range/Units 04:39 23:25 WBC 13.48 H (4.4-10.8) 10^3/uL RBC 5.06 (4.36-5.78) 10^6/uL Hgb 14.7 (13.5-17.5) g/dL Hct 43.8 (40.0-50.0) % MCV 87 (80-95) fL MCH 29.1 (27.0-33.0) pg MCHC 33.6 (32.0-36.0) % RDW 13.4 (11.8-14.1) % Plt Count 381 (130-400) 10^3/uL MPV 9.9 (8.0-11.0) fL Immature Gran % 0.3 % Neutrophils % 70.9 % Lymphocytes % 13.6 % Monocytes % 10.1 % Eosinophils % 4.7 % Basophils % 0.4 % Nucleated RBC % 0.0 (0.0-0.3) % Absolute Neutrophils 9.56 H (1.2-6.7) 10^3/uL Absolute Lymphocytes 1.83 (1.2-3.4) 10^3/uL Absolute Monocytes 1.36 H (0.1-0.8) 10^3/uL Absolute Eosinophils 0.63 (0.0-0.7) 10^3/uL Absolute Basophils 0.05 (0.0-0.2) 10^3/uL VBG Lactate 1.4 (<or=2.0) mmol/L Sodium 136 (136-145) mmol/L Potassium 3.9 (3.5-5.1) mmol/L Chloride 96 L (98-107) mmol/L Carbon Dioxide 25.3 (21.0-32.0) mmol/L Anion Gap 14.7 H (3-11) mmol/L BUN 16 (7-18) mg/dL Creatinine 0.8 (0.70-1.30) mg/dL Est GFR (CKD-EPI 2020) 105.82 (mL/min/1.73m2) Glucose 125 H (74-106) mg/dL Calcium 8.9 (8.5-10.1) mg/dL Magnesium 2.0 (1.8-2.4) mg/dL Total Bilirubin 0.8 (0.2-1.0) mg/dL AST 18 (15-37) U/L ALT 26 (16-63) U/L Alkaline Phosphatase 63 (46-116) U/L Total Protein 7.8 (6.4-8.2) g/dL Albumin 3.8 (3.4-5.0) g/dL COVID-19 Source Pending SARS-CoV-2 (PCR) Pending Influenza Type A (PCR) Pending Influenza Type B (PCR) Pending RSV (PCR) Pending Intake and Output - 24 Hour Total 09/04/24 22:43 thru 09/05/24 03:41 Intake Total 1000 Output Total 500 Balance 500 Weight 79.379 kg Intake: IV 1000 Output: Gastric Drainage 500 Left Nare 500 Falls Risk Assessment History of Falls Previous History 09/05/24 06:00 Contributing Factors Unstable 09/05/24 06:00 Ambulatory Aids Independent 09/05/24 06:00 Tubes/Lines None 09/05/24 06:00 Gait Evaluation No gait disturbance 09/05/24 06:00 Cognition No cognitive impairment 09/05/24 06:00 Fall Total Score 18 09/05/24 06:00 Level of Risk Standard/Low Risk 09/05/24 06:00 Problems (Last Reviewed 09/05/24 @ 04:25 by Brett Reyes) Hypertension (Chronic) CAD (coronary artery disease) (Chronic) Obstruction of small intestine after surgical procedure (Acute) Hyperlipidemia (Chronic) v v v v v v v v v Sending and/or Receiving Nurses: Please use comment section below to note any information pertinent to the patient hand-off not included above. Information / Comments: Received report from ED named papa.Pt. arrived in the unit per bed around 5:50AM with PIV on his right upper arm and NG tubing.A&Ox4.Able to answer admitting questions.C/o abdominal pain around 5/10,VS taken and recorded.Oriented pt. to room,call lights,TV,bathroom,beds. Situated pt into comfortable positions.Advised to voice needs and emphasized to him to call for assistance. Report received from:Papa.
[2024-09-05] MEDS: Metoprolol 12.5 MG TAB PO (06:56)
[2024-09-05] MEDS: Heparin 5,000 UNITS/ML VIAL 5000 UNITS SC ×3 (06:56→22:18)
[2024-09-05] MEDS: Normal Saline Flush 10 ML SYR IVP ×2 (07:43→22:28)
[2024-09-05 10:41] LABS: Glucose Negative (Negative)
[2024-09-05 10:51] LABS: C & S Indicated? No; RBC Negative HPF (0-2); WBC Negative HPF (0-5)
--- NOTE | 2024-09-05 12:13 | SCONE_ITS ---
Date of service: 09/05/24 Time of Service: 12:56 Assessment and Plan Assessment and plan (1) Postoperative ileus: Status: Acute Assessment and plan: 54-year-old male postop day 4 from laparoscopic umbilical hernia repair done as an urgent case for incarceration of small bowel. Has now been readmitted with a postop ileus. This already seems to be improving with some decompression as he is passing flatus overnight. He is otherwise stable. I recommended continued NG tube decompression throughout the day. Will clamp the tube overnight and if he does well in the morning he can pull the tube and advance his diet. Patient was on board with the plan. Will discuss with hospitalist. - cont IVF - cont NGT to suction today, clamp NGT at bedtime - ice chips, lozenges for sore throat - labs in am - encourage OOB and ambulation History of Present Illness History of Present Illness Chief Complaint: Vomiting Narrative: Patient is a 54-year-old male who came in with an incarcerated umbilical hernia about 5 days ago. He underwent urgent laparoscopic ventral hernia repair with Dr. Marroquin. He stayed overnight and was able to tolerate a diet in the morning and was sent home. He reports that he initially did okay but over the last 2 days his belly got more and more distended. He tried some more solid food but brought that up. He was only able to keep down water until yesterday when he started vomiting with even that. He came to the emergency room. He was evaluated with a full set of labs and a CT scan of the abdomen pelvis. Labs are fairly unremarkable. No elevation in his white blood cell count. No significant electrolyte abnormalities. Vital signs are stable. Afebrile. CT scan shows significantly distended loops of small bowel and colon with no clear transition point. No recurrence of the hernia. Patient was admitted to the hospitalist service with a diagnosis of a postoperative ileus. NG tube was placed. This morning patient does feel somewhat better. He has had about a liter of green fluid out of the NG tube. He has passed some flatus overnight. He has not had a bowel movement. He mainly complains of sore throat from the tube. No sharp abdominal pains. Review of Systems All systems reviewed & are unremarkable except as noted in HPI and below PFSH All Active Problems (Updated 09/05/24 @ 12:14 by Domingo SOMMER MD) Postoperative ileus (Acute) Hypertension (Chronic) CAD (coronary artery disease) (Chronic) Obstruction of small intestine after surgical procedure (Acute) Incarcerated umbilical hernia (Acute) Varicose veins of left calf (Acute) Phlebitis (Acute) Superficial thrombophlebitis of left leg (Acute) Coronary artery disease (Chronic) Hyperlipidemia (Chronic) Hernia (Chronic) POSSIBLE Dx Erectile dysfunction (Acute) Circadian rhythm disorder (Acute) Hypertension (Chronic) Alopecia areata (Chronic 07/03/17) [facility] Family History Mother No problems noted. Father , cancer No problems noted. 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 [employer] Pets and animals: Yes Pets and animals: dog(s) Sexually active: Yes Do you think of yourself as: straight/heterosexual Current gender identity: male What is your relationship status?: How often do you talk on the phone with friends or family?: three or more times per week How often do you get together with friends or relatives?: decline to answer Do you belong to any clubs or organized social groups?: no Panel score (0-1 are the most socially isolated patients): 2 What type of physical activity do you participate in: none and other Details: physically active daily Seatbelt use: sometimes Helmet use: No Drive intox or ride w/intox dump truck driver off highway: No Working smoke detector in home: Yes Fire extinguisher in home: No Carbon monox detector in home: Yes Do you feel safe at home: Yes Do you feel safe in your relationship?: Yes Exam Narrative Exam Narrative: General?lying in bed with head of bed elevated, no apparent distress, NG tube in place some clear and some greenish fluid. HEENT?normocephalic, atraumatic. Mucous membranes a bit dry. Sclera anicteric. Neck?supple, no masses Respiratory?unlabored, no use of accessory muscles, speaks in full sentences Abdomen?distended, tympanic to percussion, mildly tender to palpation diffusely, port site incisions are clean and dry with Dermabond in place, no erythema, no drainage, no guarding and no rebound tenderness. Extremities?moves all extremities, no gross edema Neuro-? grossly intact Results Last Vital Signs Temp 36.9 C 09/05/24 11:03 Pulse 95 H 09/05/24 11:03 Resp 16 09/05/24 11:03 BP 140/90 09/05/24 11:03 Pulse Ox 99 09/05/24 11:03 Labs 09/04/24 23:25 09/04/24 23:25 Labs: Laboratory Results - last 24 hr 09/04/24 09/05/24 23:25 10:22 WBC 13.48 H RBC 5.06 Hgb 14.7 Hct 43.8 MCV 87 MCH 29.1 MCHC 33.6 RDW 13.4 Plt Count 381 MPV 9.9 Immature Gran % 0.3 Neutrophils % 70.9 Lymphocytes % 13.6 Monocytes % 10.1 Eosinophils % 4.7 Basophils % 0.4 Nucleated RBC % 0.0 Absolute Neutrophils 9.56 H Absolute Lymphocytes 1.83 Absolute Monocytes 1.36 H Absolute Eosinophils 0.63 Absolute Basophils 0.05 VBG Lactate 1.4 Sodium 136 Potassium 3.9 Chloride 96 L Carbon Dioxide 25.3 Anion Gap 14.7 H BUN 16 Creatinine 0.8 Est GFR (CKD-EPI 2020) 105.82 Glucose 125 H Calcium 8.9 Magnesium 2.0 Total Bilirubin 0.8 AST 18 ALT 26 Alkaline Phosphatase 63 Total Protein 7.8 Albumin 3.8 Urine Color Yellow Urine Clarity Clear Urine pH 5.5 Ur Specific [place] 1.020 Urine Protein 30 H Urine Ketones 80 H Urine Blood Negative Urine Nitrite Negative Urine Bilirubin Small H Urine Urobilinogen 0.2 Ur Leukocyte Esterase Negative Urine RBC Negative Urine WBC Negative Ur Epithelial Cells Rare Urine Crystals Negative Urine Bacteria Negative Urine Casts 0-2 Hyaline Urine Mucus Moderate Ur Culture Indicated? No Urine Glucose Negative
[2024-09-05] MEDS: Metoprolol 5 MG/5 ML VIAL IVP ×2 (12:54→18:44)
[2024-09-05 12:56] LABS: COVID-19 PCR Negative (Negative); RSV PCR Negative (Negative)
--- NOTE | 2024-09-05 13:57 | INITIAL_ITS ---
Date of service: 09/05/24 Time of Service: 13:58 Care Management Initial Assmt Initial Assessment Reason for Hospitalization: Small bowel obstruction Functional Status/Living Situation Patient Presentation: Maxim was lying in bed when CM arrived. Maxim was admitted on 09/01/24 for an incarcerated umbilical hernia which he underwent a Laparoscopic umbilical hernia repair with mesh. He discharged the follow day. Maxim presented to the ED late yesterday with vomiting. Today, Maxim is POD#4 s/p repair of incarcerated umbilical hernia. Maxim is n.p.o. until he is further evaluated and has an NG tube in place. Maxim is living in [place] with his partner Nahomy. He reports he came back to the ED d/t not being able to keep any food or liquids down. Maxim is independent at baseline, including driving. Maxim declines needing a work note at this time; Nahomy requested a work note. CM discussed with provider and offered an appropriate note. CM will continue to follow. Town of Residence: [place] Resides with: Spouse Significant Other/Family: Local Natural Supports: Friends, family Employment Status: Employed Instrumental Activities of Daily Living (ADLs): Independent Medications Medication Management: No Issues/Barriers identified Advance Directives Advance Directives: Do you have an Advance Directive: N , 08:54 AD On File at [facility]: N 08/20/15, 08:54 Date Asked 09/04/24 07, 22:45 AD Date Reviewed COLST On File at [facility] No 09/04/24, 22:45 COLST Date Scanned Code Status Resuscitation Status Full Code Portal Pt does not currently have a portal and education provided: Yes Insurance Coverage/Financial Issues Insurance: [facility] - [id number] Care Team Visit Care Team Role Provider Type Scotty Lyons MD MD [facility] STAFF PHYSICIAN Juan Euceda DO Primary Care Provider OSTEOPATHIC DOCTOR Domingo Deleon [facility]iders [facility] STAFF PHYSICIAN Ann Singletary MD Emergency Provider [facility] STAFF PHYSICIAN Brett Reyes Admit Provider NON-[facility] STAFF PHYSIC JORGE Attending Provider Discharge Potential Discharge Needs: PCP F/U Appt Anticipated Barriers to Discharge: Medical Status Patient/Family Education Needs: Review discharge instructions, discuss Ask Me Three Transportation: Private vehicle Plan: Anticipate Maxim will discharge home, once medically ready. He will follow up with his community providers, surgical team, and plan of care. He will transport via private vehicle. CM will continue to follow Social Determinants of Health Screening Social Determinants of health last assessed in clinic: 09/05/24 Will the Patient Participate in the Screening?: Unable to obtain Do you worry about having a steady place to live?: yes What is your living situation today?: I have housing today, but am worried about losing it Problems where you live: no known problems In the past 12 months, have you had to go without electric, gas, oil or water in your home?: no 1. Within the past 12 months, we worried whether our food would run out before we got money to buy more.: Never true 2. Within the past 12 months, the food we bought just didn't last and we didn't have money to get more.: Never true Has lack of transportation kept you from medical appointments or from doing things needed for daily living?: no Has anyone in your life made you feel unsafe or unsupported?: no How hard is it for you to pay for the very basics like food, housing, medical care, and heating? Would you say it is:: Not hard at all Do you want help finding or keeping work or a job?: Yes, help keeping work If for any reason you need help with day-to-day activities such as bathing, preparing meals, shopping, managing finances, etc., do you get the help you need?: I could use a little more help How often do you feel lonely or isolated from those around you?: Never Do you speak a language other than [place] at home?: Yes Does the patient want assistance with any of the above?: No Health Related Social Needs Health related social needs: housing instability, housed, with risk of homelessness (Z59.811), problems finding work (Z56.9), problems with daily activities (Z73.9) and education (Z55.6) PFSH All Active Problems (Updated 09/05/24 @ 12:14 by Domingo SOMMER MD) Postoperative ileus (Acute) Hypertension (Chronic) CAD (coronary artery disease) (Chronic) Obstruction of small intestine after surgical procedure (Acute) Incarcerated umbilical hernia (Acute) Varicose veins of left calf (Acute) Phlebitis (Acute) Superficial thrombophlebitis of left leg (Acute) Coronary artery disease (Chronic) Hyperlipidemia (Chronic) Hernia (Chronic) POSSIBLE Dx Erectile dysfunction (Acute) Circadian rhythm disorder (Acute) Hypertension (Chronic) Alopecia areata (Chronic 07/03/17) [facility] Family History Mother No problems noted. Father , cancer No problems noted. 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 [employer] Pets and animals: Yes Pets and animals: dog(s) Sexually active: Yes Do you think of yourself as: straight/heterosexual Current gender identity: male What is your relationship status?: How often do you talk on the phone with friends or family?: three or more times per week How often do you get together with friends or relatives?: decline to answer Do you belong to any clubs or organized social groups?: no Panel score (0-1 are the most socially isolated patients): 2 What type of physical activity do you participate in: none and other Details: physically active daily Seatbelt use: sometimes Helmet use: No Drive intox or ride w/intox 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 Readmission Within the Past 30 Days Yes or No: Yes Date of First Admission Date of 1st Admission: 09/01/24 Date of this Admission Date of Admission: 09/05/24 This admission was: Through ED Office Visit Since 1st Admission Have you seen your PCP in the office since discharge?: No Had an appointment Been Scheduled?: No Speicalist Appointments Have you seen any other specialist since your 1st Admission?: No Specialist Seen: Appointment made to follow up with surgical I. Interview patient and/or Family Difficulty reaching your doctor or getting an office appt?: No Have you had trouble purchasing/ or taking medication?: No Have you had trouble with getting meals at home?: No Did you feel ready for discharge when you left the last time: Yes Were services received that you thought were set up on disch: Yes Did you call your physician beore you came to the ED?: No Did your physician tell you to come in?: No If the patient had a VNA ordered Did the patient have a VNA order?: No Did you call the VNA before you came?: No Did the VNA tell you to come to the hospital?: No Do you know if the VNA called your physician?: No ED visits How many ED visits in the past 12 months: 4 Assessment for Readmission Summary of readmission circumstances, based upon interviews: Patient is having a slow recovery time at home, he continues to smoke, now e xacerbated with moderate grade small bowel obstruction vs postop ileus.
[2024-09-05] MEDS: Normal Saline 1,000 ML 100 ML IV (18:17)
[2024-09-06] MEDS: Metoprolol 5 MG/5 ML VIAL IVP ×2 (00:05→06:07)
[2024-09-06 03:35] VITALS: BP 137/86; PULSE 88; RESP 20; TEMP 37.2; O2SAT 95
[2024-09-06] MEDS: Normal Saline 1,000 ML 100 ML IV (04:02)
[2024-09-06] MEDS: Heparin 5,000 UNITS/ML VIAL 5000 UNITS SC (06:08)
[2024-09-06 07:10] LABS: Abs Immature Grans 0.02 10^3/uL (0.0-0.06); HCT 37.5 % (40.0-50.0); HGB 12.2 g/dL (13.5-17.5); Immature Grans % 0.2 %; MCH 28.6 pg (27.0-33.0); MCHC 32.5 % (32.0-36.0); MCV 88 fL (80-95); MPV 10.3 fL (8.0-11.0); Platelet Count 280 10^3/uL (130-400); RBC 4.26 10^6/uL (4.36-5.78); RDW 13.2 % (11.8-14.1); RDW-SD 42.5 fL; WBC 8.78 10^3/uL (4.4-10.8)
[2024-09-06 07:20] VITALS: BP 152/89; PULSE 83; RESP 18; TEMP 36.8; O2SAT 95
[2024-09-06 07:25] LABS: ALT 20 U/L (16-63); AST 12 U/L (15-37); Albumin 2.4 g/dL (3.4-5.0); Alkaline Phosphatase 45 U/L (46-116); Anion Gap 12.4 mmol/L (3-11); BUN 14 mg/dL (7-18); Bilirubin, Total 0.6 mg/dL (0.2-1.0); CO2 23.6 mmol/L (21.0-32.0); Calcium 8.0 mg/dL (8.5-10.1); Chloride 105 mmol/L (98-107); Estimated GFR 130.46 (mL/min/1.73m2); Glucose 76 mg/dL (74-106); Magnesium 1.9 mg/dL (1.8-2.4); Potassium 3.3 mmol/L (3.5-5.1); Sodium 141 mmol/L (136-145); Total Protein 5.6 g/dL (6.4-8.2)
[2024-09-06] MEDS: Normal Saline Flush 10 ML SYR IVP (08:10)
--- NOTE | 2024-09-06 11:23 | CMPROGNOTE_ITS ---
Care Management Progress Note Progress Note Text Progress Note Text: Maxim was discharged prior to CM being able to meet with him. He will follow up with community providers and surgical. Discharge Potential Discharge Needs: PCP F/U Appt and Surgical F/U Appt Anticipated Barriers to Discharge: Medical Status Patient/Family Education Needs: Review discharge instructions, discuss Ask Me Three Transportation: Private vehicle Plan: Maxim will discharge home. He will follow up with his community providers, surgical team, and plan of care. He will transport via private vehicle. Social Determinants of Health Screening Social Determinants of health last assessed in clinic: 09/05/24 Will the Patient Participate in the Screening?: Unable to obtain Do you worry about having a steady place to live?: yes What is your living situation today?: I have housing today, but am worried about losing it Problems where you live: no known problems In the past 12 months, have you had to go without electric, gas, oil or water in your home?: no Has lack of transportation kept you from medical appointments or from doing things needed for daily living?: no Has anyone in your life made you feel unsafe or unsupported?: no How hard is it for you to pay for the very basics like food, housing, medical care, and heating? Would you say it is:: Not hard at all Do you want help finding or keeping work or a job?: Yes, help keeping work If for any reason you need help with day-to-day activities such as bathing, preparing meals, shopping, managing finances, etc., do you get the help you need?: I could use a little more help How often do you feel lonely or isolated from those around you?: Never Do you speak a language other than Maltese at home?: Yes Does the patient want assistance with any of the above?: No Health Related Social Needs Health related social needs: housing instability, housed, with risk of homelessness (Z59.811), problems finding work (Z56.9), problems with daily activities (Z73.9) and education (Z55.6)
--- NOTE | 2024-09-21 15:21 | W.PM.DS.N ---
Date of service: 09/06/24 Time of Service: 15:00 DS: Diagnosis Discharge Diagnosis (1) Postoperative ileus: Status: Resolved Discharge Plan Disposition Patient Disposition: Home Condition: Good Discharge Details Reason For Visit: post-operative ileus Admit Date/Time: 09/05/24 04:39 Admit Provider: Brett Reyes Attending Provider: Brett Reyes [facility] Hospital Course: Patient is a 54-year-old male who presented to the emergency room with intractable nausea and vomiting. He had a laparoscopic urgent umbilical hernia repair for incarcerated bowel 3 days prior. He was evaluated in the emergency room and felt to have a postoperative ileus. See admission H&P for details. NG tube was placed. He was decompressed for 24 hours. NG tube was clamped and he began to have bowel movements. NG tube was removed and he tolerated clear liquid diets and was sent home. Home Meds and New Rx's Prescriptions: No Action aspirin [Adult Aspirin Regimen] 81 mg tablet,delayed release (DR/EC) 81 mg PO DAILY nitroglycerin 0.4 mg tablet, sublingual 0.4 mg sublingual Q5M PRN (Reason: chest pain) Qty: 20 0RF Rx Instructions: do not exceed 3 doses per episode lisinopril 20 mg tablet 20 mg PO DAILY 90 Days Qty: 90 3RF metoprolol succinate 50 mg tablet extended release 24 hr 50 mg PO DAILY Qty: 90 3RF atorvastatin 80 mg tablet 80 mg PO DAILY Qty: 90 3RF hydrocodone-acetaminophen 5-325 mg tablet 1 tab PO Q6H Qty: 14 0RF Discharge Instructions Additional Instructions: Full liquid diet today, then resume regular diet tomorrow. No heavy lifting, nothing greater than 10 lbs, for 2 weeks. No dressings required. Patient may shower, no soaking in a tub or pool for 5 days. Follow up in the General Surgery office in 1 week. Call [phone] on Saturday to make the appointment. Resume all home medications. Take OTC Tylenol or Advil as needed for abdominal pain. Call or come to emergency room for intractable nausea and vomiting, worsening abdominal pain, fevers, chills, fatigue, or malaise. Stand Alone Forms: Nursing Discharge Form Referrals: Adrienne SOMMER,Domingo Muller MD [MD SOMMER STAFF PHYSICIAN, Surgery] Referral Note: Please call the office on Saturday to set up your follow up. Activity:: no heavy lifting Equipment/Supplies:: No Equipment Needed Diet:: As Tolerated Discharge Orders Discharge Orders: Discharge Order (Routine); Ordered 09/06/24 Ordered By: Domingo Deleon [facility] Discharge Data Discharge Date/Time-TO BE ENTERED AT DEPARTURE: 09/06/24 11:17 DS: Summary Time Spent with Patient providing and/or coordinating discharge services: Less than 30 minutes Status at Discharge Functional status at discharge: independent ambulation Overall status at discharge: other Mental Status: other Speech and Movement: other Mood: other Affect: other Quality:SDOH Health Related Social Needs: Health related social needs risk of homeless finding work daily activities education Exam Narrative Exam Narrative: deferred Psych Mental Status: other Speech and Movement: other Mood: other Affect: other DS: Data Vitals/I&O Vitals and I&O: Vital Signs Temperature 36.8 C 09/06/24 07:20 Temperature Source Temporal Artery Scan 09/06/24 07:20 Pulse 83 09/06/24 07:20 Pulse Rhythm Regular 09/05/24 06:00 Pulse 99 H 09/05/24 05:31 Respiratory Rate 18 09/06/24 07:20 Respiratory Effort Normal, Non-Labored 09/05/24 06:00 Respiratory Depth Normal 09/05/24 06:00 Respiratory Pattern Normal 09/05/24 06:00 Blood Pressure 152/89 H 09/06/24 07:20 Blood Pressure Mean 110 09/06/24 07:20 Blood Pressure Position Sitting 09/04/24 23:03 Pulse Oximetry 95 09/06/24 07:20 Oxygen Delivery Method Room Air 09/06/24 07:20 Oxygen Flow Rate 0 09/06/24 07:20 Pain Level 0 09/06/24 03:35 Comment rn notified 09/06/24 07:20 [facility], [facility] All Active Problems (Updated 09/07/24 @ 00:03 by MARYANNE WORLEY) Hypertension (Chronic) CAD (coronary artery disease) (Chronic) Incarcerated umbilical hernia (Acute) Varicose veins of left calf (Acute) Phlebitis (Acute) Superficial thrombophlebitis of left leg (Acute) Coronary artery disease (Chronic) Hyperlipidemia (Chronic) Hernia (Chronic) POSSIBLE Dx Erectile dysfunction (Acute) Circadian rhythm disorder (Acute) Hypertension (Chronic) Alopecia areata (Chronic 07/03/17) [facility] Family History Mother No problems noted. Father , cancer No problems noted. 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 [email or web address] Pets and animals: Yes Pets and animals: dog(s) Sexually active: Yes Do you think of yourself as: straight/heterosexual Current gender identity: male What is your relationship status?: How often do you talk on the phone with friends or family?: three or more times per week How often do you get together with friends or relatives?: decline to answer Do you belong to any clubs or organized social groups?: no Panel score (0-1 are the most socially isolated patients): 2 What type of physical activity do you participate in: none and other Details: physically active daily Seatbelt use: sometimes Helmet use: No Drive intox or ride w/intox water taxi 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 Time Spent with Patient Time Spent with Patient: <45 minutes Time was spent: other
== END 2024-09-06 11:17 | disposition home or self-care (01) ==
LOC: ER 09-05 04:42 → MS 09-05 07:19
PROVIDERS: Admitting Provider Family Medicine; Emergency Provider Student in an Organized Health Care Education/Training Program; PCP Family Medicine; Responsible Provider Hospitalist; Visit Provider Family Medicine
DX: K91.30 Postprocedural intestinal obstruction, unspecified as to partial versus complete (principal); I25.10 Atherosclerotic heart disease of native coronary artery without angina pectoris; I10 Essential (primary) hypertension; E78.5 Hyperlipidemia, unspecified; G47.20 Circadian rhythm sleep disorder, unspecified type; L63.9 Alopecia areata, unspecified; I83.92 Asymptomatic varicose veins of left lower extremity; F17.210 Nicotine dependence, cigarettes, uncomplicated; I25.2 Old myocardial infarction; Z79.899 Other long term (current) drug therapy
CPT/HCPCS: 00123; 80053; 85027; 87637; 71045; 74177; 81003; 81015; 83605; 83735; 85025; 99223; 99238; G0378; J1644; J2405; J3490; Q9967